=== PATIENT | female | born 1980 | race Caucasian/White ===

== ENCOUNTER 2016-10-11 16:39 | Emergency (ER) | payer MEDICAID ==
[~2016-10-11] VITALS: Ht 165.1 cm; Wt 72.6 kg
[~2016-10-11 16:39] MED LIST: APAP W/ CODEINE1 TAB PO; ESTRACE 2MG. TAB2 MG PO; ETODOLAC200 MG PO; FLEXERIL10 MG PO; HYDROCODONE-APA1 TA2 PO; KEFLEX 500MG.500 MG PO; KLOR-CON M2020 MEQ PO; MOTRIN 400MG.400 MG PO; NAPROSYN 500MG500 MG PO; NOMEDS XX; NORCO 325 MG-51 TAB PO; PERCOCET 5/3251 EACH PO; PHENERGAN 25MG.25 M1 PO; PREDNISONE 20MG20 MG PO; TORADOL10 MG PO; VALTREX1 GM PO; VIBRAMYCIN 100100 MG PO
--- NOTE | 2016-10-11 17:41 | Urgent Treatment Center Report ---
History of Present Issue Date/Time Seen by Provider 10/11/16 1741 Visit Reason Pt arrived:Walked Presenting Problem:PT C/O PAIN IN THE RIGHT EAR AND PAIN IN HER NECK. ADVISES IT FEELS LIKE A MUSCLES AND THAT SHE HAS HAD ACID REFLUX FOR 4 DAYS Location if Accident: Onset of symptoms date/time:/ or onset unknown for:MEDICAL HX UNKNOWN Have you (or family members/close friends) recently traveled outside the [place]? N If Yes, where/when: Have you had exposure to infectious disease within the past month? TB? Other? Specify: c/o pain in right side of neck w/ intermittent pain in right ear, and acid reflux type feeling for 4-5 days. Pt thinks this is muscular but doesn't know why she feels this way. Denies known injury. Initially denies treatment and denies having a PCP. Pain started 1-2 months ago, was intermittent but now constant last 3-4 days. 03/11, constant aching and occasionally swueezing. worse w/ some neck movement, especially looking to right. Denies headache or dizziness. Eventually slips and mentions a visit to the doctor last week. Finally reports she saw a PCP, Dr. Pompa with [facility] in [place], but not sure when. They remembers it was just end of last week, less than one week ago. he felt like it was muscular but no improvement with antiinflammatories, steroids, and muscle relaxers. Pt reports he ordered neck xray and it was normal. Didn't call him today or try to get back in to see him. "Thought I would see if someone else would give me anything for this". Hasn't taken steroids completely as prescribed and hasn't had antiinflammatories in 1-2 days. Source patient Exam Limitations no limitations ALLERGIES Coded Allergies: No Known Allergies (10/18/15) Home Medications Active Scripts Prednisone (Prednisone 20MG) 20 MG PO BID #10 TAB Prov: 10/03/16 History Medical History General CAD? No Angina: No OK: No Hypertension? No Hyperlipidemia? No CHF? No DVT? No PE? No COPD? No Asthma? No Anemia? No GERD? No Gastric ulcers? No GI Bleed? No Hernia? No Thyroid Problems? No Hypothyroidism? No CVA? No Seizures? No Diabetes? No Insulin Dependent: No Insulin Pump: No Home FSBS? No Renal Insuffiency? No UTI? Yes Stones? No BPH? No GB Disease: Yes Nephritic Syndrome? No Asplenia? No Hepatitis? No Sickle Cell Disease? No Arthritis? No Migraines? No Cataracts? No Glaucoma? No MRSA? No HIV? No TB? No Anxiety? Yes Depression? No Cancer? No More? Yes Additional hx: ENDOMETRIOSIS CHRONS Immunization HX DT/Tetanus > 10 Years Ago Flu Refused Pneumonia Refuses Surgical Hx Previous Surgery?Y DIAG LAP X 2 WISDOM TEETH LAP KLE TUBAL COLONOSCOPY HYSTERECTOMY Family History Family HX Diabetes Yes CAD Yes Hypertension No Hyperlipidemia No Cancer Yes TB No Social History Smoking Hx Smoker: Current Every Day Smoker Tobacco: Yes Type Cigarettes Packs/day 1 1/2 - 2 Packs Alcohol Alcohol: Yes Review of Systems All Other Systems Reviewed and Negative Constitutional denies fever, denies malaise, denies weakness ENT denies: ear discharge, nose discharge, nose congestion, throat pain, throat swelling. Respiratory denies cough Cardiovascular denies chest pain Gastrointestinal denies nausea, denies vomiting Musculoskeletal see HPI, denies back pain, muscle pain, muscle stiffness, neck pain Skin denies lesions, denies lumps, denies rash Psychiatric/Neurological denies numbness, denies tingling, denies weakness Physical Exam Vital Signs Vital Signs Date Time Temp Pulse Resp B/P Pulse O2 O2 Flow FiO2 Ox Delivery Rate 10/11 1801 98.6 87 16 168/98 98 10/11 1652 98.6 87 16 168/98 98 10/11 1645 98.6 87 16 168/98 98 General Appearance no apparent distress Ear, Nose, Throat normal ENT inspection Neck normal inspection, supple, full range of motion (inc pain rotation to right ), tender in area of right Sternocleidomastoid muscle only, no palpable abnormality, normal thyroid, no lymphadenopathy Respiratory Status No: respiratory distress (no cough). Lung Sounds anterior: lungs clear. posterior: lungs clear. bilateral: lungs clear. Cardiovascular regular rate/rhythm, no peripheral edema, no murmur Back normal inspection, no vertebral tenderness, gait normal Extremities normal range of motion, normal inspection Strength 5 Upper Ext (L), 5 Upper Ext (R) Neurologic alert, no motor/sensory deficits Skin intact, normal color, warm/dry Lymphatic no adenopathy (neck) Medical Decision Making LABS/Meds/Orders Pt receiving controlled substance in ED? No Progress [facility] Progress Notes Date 10/11/16 Comment pt's attitude changed once she slipped and reported her visit with Dr. Pompa last week. She no longer seemed as concerned, no longer asking for treatment, denied treatment options offered and was ready to leave and reported she would follow up with his office tomorrow. Nice and thankful and happy for the reassurance. Departure Departure Time of Disposition 1752 Disposition DC Home or Self Care(routine) Clinical Impression Primary Impression: Neck pain on right side Condition STABLE Referrals NO REFERRAL Dr. Pompa at [facility] in [place], call tomorrow for follow up appt Patient Instructions DI for Neck Pain Additional Instructions Try local heat tonight. 15-20 minutes 3-4 times a day Ibuprofen every 6-8 hours. You declined toradol injection in office. Call PCP in morning and schedule follow up appt. Sounds like he already started work-up. Pt agrees to follow up with his office tomorrow. Discharge Counseling Counseled pt/family regarding diagnosis, medications/RX, home care, follow up needs at [phone]
--- NOTE | 2016-10-11 17:41 | Urgent Treatment Center Report ---
History of Present Issue Date/Time Seen by Provider 10/11/16 1741 Visit Reason Pt arrived:Walked Presenting Problem:PT C/O PAIN IN THE RIGHT EAR AND PAIN IN HER NECK. ADVISES IT FEELS LIKE A MUSCLES AND THAT SHE HAS HAD ACID REFLUX FOR 4 DAYS Location if Accident: Onset of symptoms date/time:/ or onset unknown for:MEDICAL HX UNKNOWN Have you (or family members/close friends) recently traveled outside the [place]? N If Yes, where/when: Have you had exposure to infectious disease within the past month? TB? Other? Specify: c/o pain in right side of neck w/ intermittent pain in right ear, and acid reflux type feeling for 4-5 days. Pt thinks this is muscular but doesn't know why she feels this way. Denies known injury. Initially denies treatment and denies having a PCP. Pain started 1-2 months ago, was intermittent but now constant last 3-4 days. 03/11, constant aching and occasionally swueezing. worse w/ some neck movement, especially looking to right. Denies headache or dizziness. Eventually slips and mentions a visit to the doctor last week. Finally reports she saw a PCP, Dr. Pompa with [facility] in [place], but not sure when. They remembers it was just end of last week, less than one week ago. he felt like it was muscular but no improvement with antiinflammatories, steroids, and muscle relaxers. Pt reports he ordered neck xray and it was normal. Didn't call him today or try to get back in to see him. "Thought I would see if someone else would give me anything for this". Hasn't taken steroids completely as prescribed and hasn't had antiinflammatories in 1-2 days. Source patient Exam Limitations no limitations ALLERGIES Coded Allergies: No Known Allergies (10/18/15) Home Medications Active Scripts Prednisone (Prednisone 20MG) 20 MG PO BID #10 TAB Prov: 10/03/16 History Medical History General CAD? No Angina: No OR: No Hypertension? No Hyperlipidemia? No CHF? No DVT? No PE? No COPD? No Asthma? No Anemia? No GERD? No Gastric ulcers? No GI Bleed? No Hernia? No Thyroid Problems? No Hypothyroidism? No CVA? No Seizures? No Diabetes? No Insulin Dependent: No Insulin Pump: No Home FSBS? No Renal Insuffiency? No UTI? Yes Stones? No BPH? No GB Disease: Yes Nephritic Syndrome? No Asplenia? No Hepatitis? No Sickle Cell Disease? No Arthritis? No Migraines? No Cataracts? No Glaucoma? No MRSA? No HIV? No TB? No Anxiety? Yes Depression? No Cancer? No More? Yes Additional hx: ENDOMETRIOSIS CHRONS Immunization HX DT/Tetanus > 10 Years Ago Flu Refused Pneumonia Refuses Surgical Hx Previous Surgery?Y DIAG LAP X 2 WISDOM TEETH LAP KEL TUBAL COLONOSCOPY HYSTERECTOMY Family History Family HX Diabetes Yes CAD Yes Hypertension No Hyperlipidemia No Cancer Yes TB No Social History Smoking Hx Smoker: Current Every Day Smoker Tobacco: Yes Type Cigarettes Packs/day 1 1/2 - 2 Packs Alcohol Alcohol: Yes Review of Systems All Other Systems Reviewed and Negative Constitutional denies fever, denies malaise, denies weakness ENT denies: ear discharge, nose discharge, nose congestion, throat pain, throat swelling. Respiratory denies cough Cardiovascular denies chest pain Gastrointestinal denies nausea, denies vomiting Musculoskeletal see HPI, denies back pain, muscle pain, muscle stiffness, neck pain Skin denies lesions, denies lumps, denies rash Psychiatric/Neurological denies numbness, denies tingling, denies weakness Physical Exam Vital Signs Vital Signs Date Time Temp Pulse Resp B/P Pulse O2 O2 Flow FiO2 Ox Delivery Rate 10/11 1801 98.6 87 16 168/98 98 10/11 1652 98.6 87 16 168/98 98 10/11 1645 98.6 87 16 168/98 98 General Appearance no apparent distress Ear, Nose, Throat normal ENT inspection Neck normal inspection, supple, full range of motion (inc pain rotation to right ), tender in area of right Sternocleidomastoid muscle only, no palpable abnormality, normal thyroid, no lymphadenopathy Respiratory Status No: respiratory distress (no cough). Lung Sounds anterior: lungs clear. posterior: lungs clear. bilateral: lungs clear. Cardiovascular regular rate/rhythm, no peripheral edema, no murmur Back normal inspection, no vertebral tenderness, gait normal Extremities normal range of motion, normal inspection Strength 5 Upper Ext (L), 5 Upper Ext (R) Neurologic alert, no motor/sensory deficits Skin intact, normal color, warm/dry Lymphatic no adenopathy (neck) Medical Decision Making LABS/Meds/Orders Pt receiving controlled substance in ED? No Progress [facility] Progress Notes Date 10/11/16 Comment pt's attitude changed once she slipped and reported her visit with Dr. Pompa last week. She no longer seemed as concerned, no longer asking for treatment, denied treatment options offered and was ready to leave and reported she would follow up with his office tomorrow. Nice and thankful and happy for the reassurance. Departure Departure Time of Disposition 1752 Disposition DC Home or Self Care(routine) Clinical Impression Primary Impression: Neck pain on right side Condition STABLE Referrals NO REFERRAL Dr. Pompa at [facility] in [place], call tomorrow for follow up appt Patient Instructions DI for Neck Pain Additional Instructions Try local heat tonight. 15-20 minutes 3-4 times a day Ibuprofen every 6-8 hours. You declined toradol injection in office. Call PCP in morning and schedule follow up appt. Sounds like he already started work-up. Pt agrees to follow up with his office tomorrow. Discharge Counseling Counseled pt/family regarding diagnosis, medications/RX, home care, follow up needs at [phone]
[2016-10-11 18:01] VITALS: BP 168/98
== END 2016-10-11 18:02 | disposition home or self-care (01) ==
LOC: ER 16:39 → UTC 16:48
DX: M54.2 Cervicalgia (principal)

== ENCOUNTER 2017-04-06 15:09 | Emergency (ER) | payer MEDICAID ==
[~2017-04-06] VITALS: Ht 165.1 cm; Wt 81.6 kg
[2017-04-06 15:31] LABS: HEMOGLOBIN 15.4 g/dL (12.2-16.2); LYMPH # 3.1 K/mm3 (0.7-4.5)
[2017-04-06 16:01] LABS: BUN 4 mg/dL (7-18); GFR (ESTIMATED) 82 ML/MIN (59-)
--- NOTE | 2017-04-06 16:32 | Emergency Room Report ---
History of Present Illness Time Seen by MD Neri Comment The patient arrives by ambulance. She has several different complaints. She complains of a painful knot on her anterior chest that is been there for a couple of days. It is very tender to touch. She says also the RIGHT side of her neck hurts and she has pain that goes down into her RIGHT arm and tingling of her RIGHT fingers. Her neck pain increases worse with movement. She also says that she thinks her RIGHT shoulder when out recently and she wonders whether it is still partially out. She can move it through a full range of motion. She says "it will go out again some time". She denies current cough although she said she recently saw her doctor couple of weeks ago for a cough. No fever. No shortness of breath. No leg pain or swelling. No recent travel, surgeries, or hospitalizations. No hormonal treatment. He says that she had an MRI of her neck about 6 months ago at another hospital that showed disc problems in her neck. She says she was having numbness in her hands and legs at that time and her doctor also wants to do an MRI of her back. ALLERGIES Coded Allergies: No Known Allergies (04/06/17) History Medical History General CAD? No Angina: No HI: No Hypertension? No Hyperlipidemia? No CHF? No DVT? No PE? No COPD? No Asthma? No Anemia? No GERD? No Gastric ulcers? No GI Bleed? No Hernia? No Thyroid Problems? No Hypothyroidism? No CVA? No Seizures? No Diabetes? No Renal Insuffiency? No End Stage Renal Disease? No UTI? No Stones? No BPH? No GB Disease: No Nephritic Syndrome? No Asplenia? No Hepatitis? No Sickle Cell Disease? No Arthritis? No Migraines? No Cataracts? No Glaucoma? No MRSA? No HIV? No TB? No Anxiety? Yes Depression? No Cancer? 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 Social History Smoking Hx Smoker: Current Every Day Smoker Tobacco: Yes Type Cigarettes Alcohol Alcohol: No Review of Systems All Other Systems Reviewed and Negative Constitutional denies fever Respiratory denies cough, denies shortness of breath Cardiovascular see HPI, chest pain, denies edema Musculoskeletal see HPI, joint pain, neck pain Physical Exam Vital Signs Vital Signs Date Time Temp Pulse Resp B/P Pulse O2 O2 Flow FiO2 Ox Delivery Rate 04/06 1646 90 18 127/76 98 04/06 1511 98.6 90 18 133/80 98 General Appearance Extremely anxious Eye Exam - bilateral eye normal exam, bilateral eye PERRL, bilateral eye EOMI Ear, Nose, Throat hearing grossly normal, normal ENT inspection Neck tender RIGHT lateral neck. No mass., positive Spurling Respiratory Status Yes: trachea midline, chest symmetrical, tender on palpation. No: respiratory distress. Lung Sounds bilateral: normal breath sounds, lungs clear. Cardiovascular normal exam, regular rate/rhythm, no peripheral edema, no gallop, no JVD, no murmur, no rub, normal peripheral pulses Peripheral Pulses Pulses normal Yes Gastrointestinal normal bowel sounds, normal exam, non tender, soft, no organomegaly Extremities non-tender, normal range of motion, normal inspection, for range of motion of RIGHT shoulder. No signs of subluxation or dislocation. 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 Yes Juan was queried for this patient? Yes Comment [id number] rxs. last pain med 16 tramadol on 03/13/17. Results/Orders Laboratory Tests 04/06/17 1520: Sodium 140, Potassium 3.4 L, Chloride 103, Carbon Dioxide 24, BUN 4 L, Creatinine 0.8, Estimated Creat Clear 128, Estimated GFR (MDRD) 82, Glucose 93, Calcium 9.6, Total Bilirubin 0.5, AST 12 L, ALT 27, Alkaline Phosphatase 113, Creatine Kinase 161, CK-MB (CK-2) Rel Index 0.3, CK and CKMB Interp < 0.5, Troponin I < 0.02, Total Protein 8.5 H, Albumin 4.0, Globulin 4.5 H, Albumin/ Globulin Ratio 0.9 L, WBC 8.5, RBC 5.23, Hgb 15.4, Hct 47.4 H, MCV 90.7, RDW 13.0, Plt Count 221, MPV 8.4, Gran % 52.6, Gran # 4.5, Lymphocytes % 36.0, Monocytes % 8.2, Eosinophils % 2.4, Basophils % 0.7, Lymphocytes # 3.1, Monocytes # 0.7, Eosinophils # 0.2, Basophils # 0.1, PUBS MCHC 32.4, MCH 29.4 Current Medication Orders Sig/Max Start time Last Medication Dose Route Stop Time Status Admin Ketorolac 0 .STK-MED ONE 04/06 1638 DC Tromethamine .ROUTE Ketorolac 30 MG ONCE ONE 04/06 1630 DC Tromethamine IV 04/06 163 Orders Procedure Date/time Status 12 LEAD EKG-LULU (INITIAL) 04/06 1520 Active ELECTROCARDIOGRAM REQUEST 04/06 1518 Active CHEST(2 VIEWS-NOT PORTABLE) 04/06 1518 Active CBC WITH AUTO DIFF 04/06 1518 Complete CARDIAC ENZYMES 04/06 1518 Complete CHEM 12 PROFILE 04/06 1518 Complete Departure Departure Disposition DC Home or Self Care(routine) Clinical Impression Primary Impression: Cervical radiculopathy Secondary Impressions: Costochondritis Condition STABLE Patient Instructions DI for Cervical Radiculopathy, DI for Costochondritis Additional Instructions Additional instructions for NECK PAIN: See your physician as soon as possible for further evaluation. Return immediately if neck pain becomes intolerable, or if fever, numbness or weakness of your arms or legs, loss of control of your bowels or bladder. Additional instructions for CHEST PAIN: See your physician as soon as possible for further evaluation. Return immediately if worsening chest pain, vomiting, shortness of breath, fever, coughing of blood. Additional instructions for CONTROLLED SUBSTANCES: You have been prescribed a medication that is a controlled substance. Controlled substances include pain medications known as opiates and sedative nerve medications known as benzodiazepines. Some common opiates include: Codeine (such as Tylenol #3) Hydrocodone (Vicodin, Lortab, Lorcet, [place]) Oxycodone (Percocet, Percodan, Oxycodone, Oxy IR) Some common benzodiazepines include: Diazepam (Valium) Lorazepam (Ativan) Alprazolam (Xanax) Clonazepam (Klonopin) Oxazepam (Serax) All of these controlled substances are highly addictive and frequently abused. Misuse can and frequently does lead to addiction as well as overdose and . Short term supplies, 3 days or less, are prescribed because of the highly addictive nature of the medication. Any of the controlled substance medication NOT taken should be disposed of properly and NOT SAVED. The recommended method of disposing of unused medications is: Place the medicines in a sealable plastic bag. If the medicine is a solid, crush it or add water to dissolve it. Add something undesirable (cat litter, coffee grounds, etc.) Dispose of sealed bag in household trash Do not flush or pour unused medicines down a sink or drain. Also, because of the addictive nature and frequent abuse, these medications are sometimes stolen. These medications should be kept in a safe place where they cannot be stolen. Do not keep them in your car or purse. Lost or stolen prescriptions for controlled substances WILL NOT BE REFILLED in this emergency department, regardless of whether a police report was filed. Prescriptions Current Visit Scripts TRAMADOL HCL (Tramadol) 50 MG PO Q6HP PRN pain #10 TAB Prednisone (Prednisone 10MG) 10 MG PO DAILY #27 TAB 6 po on days 1-2, then decrease dose by 1 pill per day until gone ED Critical Care Critical Care No at 1915
[2017-04-06 16:46] VITALS: BP 127/76
--- NOTE | 2017-04-07 09:24 | RADIOLOGY REPORT PS360 ---
CHEST(2 VIEWS-NOT PORTABLE) INDICATION: Chest pain COMPARISON: None FINDINGS: The lung mar are well expanded and appear clear of infiltrate. The cardiomediastinal silhouette and vascularity are normal. The costophrenic angles are clear. The bony thorax is normal. IMPRESSION: Normal chest.
--- OUTSIDE RECORDS SUMMARY | 2017-04-13 07:36 | External Medical Summary Rpt | CCD ---
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 TA BL ET OX 00 07 07 00 12 3 DE 20 CANO Ac YC 40 -1 -3 .0 AN 11 LL ti OD 60 5- 0- 00 S 47 ve ON 51 [address] E- 20 09 09 AR EP AC 5 MA HE ET CY N AM K IN OP HE N 5- 32 5 IB 53 07 07 00 30 10 DE 63 CANO Ac UP 74 -1 -3 .0 AN 82 LL ti RO 60 5- 0- 00 S 10 ve FE 46 [address] N 60 09 09 AR EP 80 5 MA HE 0 CY N MG K TA BL ET 00 05 05 00 10 3 KR 44 ANGELIQUE Ac 40 -0 -2 .0 OG 27 HM ti 60 5- 1- 00 ER 24 E ve 35 20 20 9 CA 70 09 09 PH RO 5 M LI #1 NE 44 J 10 CE 42 05 05 00 14 7 KR 67 ANGELIQUE Ac PH 04 -0 -2 .0 OG 84 HM ti AL 30 5- 1- 00 ER 38 E ve EX 14 20 20 0 CA IN 10 09 09 PH RO 5 M LI 50 #1 NE 0 44 J MG 10 CA PS UL E 59 04 04 00 30 30 MA 60 SR Ac 63 -0 -2 .0 YS 09 IV ti 00 1- 3- 00 18 ve 41 20 20 LL 6 TA 69 09 09 E VA 0 OB /G GE YN ET A FA AZ LY HE AL TH AM 00 02 02 00 30 10 RE 66 BR Ac OX 09 -0 -1 .0 YN 17 IN ti -C 32 5- 2- 00 OL 75 DL ve LA 27 20 20 DS EY V 43 09 09 M 50 4 PH L 0- AR 12 MA 5 CY MG TA BL ET CE 68 12 01 00 40 10 RE 66 BR Ac PH 18 -2 -1 .0 YN 02 IN ti AL 00 7- 5- 00 OL 40 DL ve EX 12 20 20 DS EY IN 20 08 09 M 2 PH L 50 AR 0 MA MG CY CA PS UL E DI 00 12 12 00 30 30 DE 40 NE Ac AZ 17 -1 -1 .0 AN 57 US ti EP 23 0- 8- 00 S 81 ve AM 92 [address] 77 08 08 AR EV 10 0 MA EN CY E MG TA BL ET 63 11 12 00 40 10 MA 60 ME Ac 30 -2 -0 .0 YS 04 ES ti 40 1- 4- 00 89 E ve 65 [address] 70 08 08 E EP 5 OB HE /G N YN P FA AZ LY HE AL TH DI 00 11 11 00 30 30 MA 40 NE Ac AZ 37 -1 -2 .0 YS 01 US ti EP 80 0- 0- 00 48 ve AM 47 [address] 70 08 08 E EV 10 1 OB EN /G E MG YN TA FA BL AZ ET LY HE AL TH 00 10 10 00 12 2 WA 27 No Ac 59 -0 -2 .0 LG 30 t ti 10 5- 3- 00 RE 37 Av ve 34 20 20 EN 0 ai 90 08 08 # la 5 bl 07 e 34 6 DI 00 07 10 02 30 30 DE 40 No Ac AZ 17 -1 -2 .0 AN 57 t ti EP 23 5- 3- 00 S 04 Av ve AM 92 20 20 PH 8 ai 77 08 08 AR la 10 0 MA bl CY e MG TA BL ET DI 00 07 09 01 30 30 DE 40 No Ac AZ 17 -1 -2 .0 AN 57 t ti EP 23 5- 6- 00 S 04 Av ve AM 92 20 20 PH 8 ai 77 08 08 AR la 10 0 MA bl CY e MG TA BL ET DI 00 07 08 00 30 30 DE 40 No Ac AZ 17 -1 -2 .0 AN 57 t ti EP 23 5- 8- 00 S 04 Av ve AM 92 20 20 PH 8 ai 77 08 08 AR la 10 0 MA bl CY e MG TA BL ET DI 00 07 08 00 30 30 RI 61 No Ac AZ 17 -1 -0 .0 TE 41 t ti EP 23 5- 1- 00 82 Av ve AM 92 20 20 AI ai 77 08 08 D la 10 0 PH bl AR e MG M #3 TA 92 BL 0 ET 60 07 07 00 20 10 DE 63 No Ac 50 -0 -1 .0 AN 68 t ti 51 9- 7- 00 S 10 Av ve 30 20 20 PH 9 ai 90 08 08 AR la 1 MA bl CY e 60 06 06 00 14 7 DE 63 No Ac 50 -0 -1 .0 AN 66 t ti 51 5- 2- 00 S 85 Av ve 30 20 20 PH 5 ai 90 08 08 AR la 1 MA bl CY e DI 00 06 06 00 30 30 DE 40 No Ac AZ 17 -0 -1 .0 AN 56 t ti EP 23 5- 2- 00 S 58 Av ve AM 92 20 20 PH 9 ai 77 08 08 AR la 10 0 MA bl CY e MG TA BL ET DI 00 03 05 02 30 30 RE 64 No Ac AZ 59 -1 -2 .0 YN 72 t ti EP 15 0- 2- 00 OL 15 Av ve AM 62 20 20 DS ai 00 08 08 la 10 5 PH bl AR e MG MA CY TA BL ET DI 00 03 04 01 30 30 RE 64 No Ac AZ 59 -1 -2 .0 YN 72 t ti EP 15 0- 4- 00 OL 15 Av ve AM 62 20 20 DS ai 00 08 08 la 10 5 PH bl AR e MG MA CY TA BL ET PE 54 05 04 03 24 30 RE 63 No Ac NT 09 -0 -1 0. YN 17 t ti 20 4- 7- 00 OL 21 Av ve A 19 20 20 0 DS ai 50 11 07 08 la 0 2 PH bl MG AR e MA CA CY PS UL E DI 00 03 04 00 30 30 RE 64 No Ac AZ 59 -1 -1 .0 YN 72 t ti EP 15 0- 7- 00 OL 15 Av ve AM 62 20 20 DS ai 00 08 08 la 10 5 PH bl AR e MG MA CY TA BL ET DI 00 09 03 04 30 30 RE 63 No Ac AZ 59 -1 -2 .0 YN 83 t ti EP 15 0- 6- 00 OL 21 Av ve AM 62 20 20 DS ai 00 07 08 la 10 5 PH bl AR e MG MA CY TA BL ET CAVAZOS 53 01 03 01 30 15 RE 64 No Ac LF 48 -0 -2 .0 YN 36 t ti AM 90 2- 6- 00 OL 12 Av ve ET 14 20 20 DS ai HO 60 08 08 la XA 5 PH bl ZO AR e LE MA -T CY MP DS TA BL ET DI 00 09 03 03 30 30 RE 63 No Ac AZ 59 -1 -2 .0 YN 83 t ti EP 15 0- 4- 00 OL 21 Av ve AM 62 20 20 DS ai 00 07 08 la 10 5 PH bl AR e MG MA CY TA BL ET CAVAZOS 53 01 03 00 30 15 RE 64 No Ac LF 48 -0 -2 .0 YN 36 t ti AM 90 2- 4- 00 OL 12 Av ve ET 14 20 20 DS ai HO 60 08 08 la XA 5 PH bl ZO AR e LE MA -T CY MP DS TA BL ET 63 01 03 00 20 10 RE 64 No Ac 82 -0 -2 .0 YN 36 t ti 40 2- 4- 00 OL 13 Av ve 00 20 20 DS ai 82 08 08 la 0 PH bl AR e MA CY Procedures Procedure DOS Code Location Performer Comment DRUG TEST 79535 ST PRSMV 7 [facility] INSTRDET CHEMISTRY HEALTHCAR HEALTHCAR E EDGE E EDGE ANALYZERS [place] [address]3814 RADIOLOGY ROEBKER SPINAL 7 CANAL ASSOCIATE CERVICAL S OF [facility] W/O CONTRAST MATRL GLUC BLD 21483 RAHEL MCGINNIS GLUC MNTR 7 [facility] DEV INC INC CLEARED FDA SPEC HOME USE DRUG TEST 51171 RAHEL MCGINNIS PRSMV 7 [facility] QUAL DIR INC INC OPTICAL OBS PER DAY RADEX 64456 RADIOLOGY BOISE SPINE 7 INC CERVICAL 2 OR 3 VIEWS RADEX 87588 JOANNA BENITEZ SHOULDER 7 MEDICAL COMPLETE IMAGING MINIMUM 2 ASS VIEWS RADEX 25042 JOANNA BENITEZ HUMERUS 7 MEDICAL MINIMUM 2 IMAGING VIEWS ASS RADEX 02012 JOANNA BENITEZ FOREARM 2 7 MEDICAL VIEWS IMAGING ASS RADEX 40579 RAHEL MCGINNIS WRIST 7 [facility] COMPLETE INC INC MINIMUM 3 VIEWS SHOULDER L3650 ADVANCED ADVANCED ORTHOSIS 7 TECHNOLOG TECHNOLOG FIG 8 IES INC IES INC ABDUCT RESTRAINE R PREFAB RADEX 48788 JOANNA BENITEZ HAND 7 MEDICAL MINIMUM 3 IMAGING VIEWS ASS CREATINE 04343 RAHEL MCGINNIS KINASE MB 7 [facility] FRACTION INC INC ONLY ECG 61526 RAHEL MCGINNIS ROUTINE 7 [facility] ECG INC INC W/LEAST 12 LDS TRCG ONLY W/O I&R CREATINE 58795 RAHEL MCGINNIS KINASE 7 [facility] HOSP TOTAL INC INC RADIOLOGI 56822 RAHEL MCGINNIS C EXAM 7 [facility] CHEST 2 INC INC VIEWS FRONTAL&[place] [address] RAHEL MCGINNIS TROPONIN 7 [facility] HOSP QUANTITAT INC INC JAYDE ECG 37613 RAHEL MCKEONSON ROUTINE 7 [facility] W/LEAST P 12 LDS I&R ONLY RADEX 24235 RADIOLOGY JANNETTE SHOULDER 7 COMPLETE ASSOCIATE MINIMUM 2 S OF NOTH VIEWS RADEX 01759 RAHEL MCGINNIS FOREARM 2 6 [facility] VIEWS INC INC THERAPEUT 04736 RAHEL MCGINNIS IC 6 [facility] HOSP PROPHYLAC INC INC TIC/DX INJECTION SUBQ/IM RADEX 62284 RAHEL MCGINNIS ELBOW 6 [facility] COMPLETE INC INC MINIMUM 3 VIEWS SHOULDER L3650 ADVANCED ADVANCED ORTHOSIS 6 TECHNOLOG TECHNOLOG FIG 8 IES INC IES INC ABDUCT RESTRAINE R PREFAB RADEX 37300 COLD COLD SHOULDER 6 [place] [facility] [place]IM[place] [address] [place] [address] RADIOLOGY SHERIF SCO ABDOMEN & 6 PELVIS ASSOCIATE W/CONTRAS S OF NOTH T MATERIAL OPHTH 38334 [place] [facility]ENE [facility] 6 XM&EVAL COMPRE NEW PT 1/> VST BASIC 06550 LAB DESIRE LAB DESIRE METABOLIC 6 JAYY JAYY PANEL [place] [address] [place] T[facility]RES ALL HEAD/BRAI 6 MEDICAL N W/O IMAGING CONTRAST ASS MATERIAL CULTURE 08266 RAHEL MCGINNIS BACTERIAL 5 [facility] INC INC QUANTTATI VE COLONY COUNT URINE BLOOD 88917 RAHEL MCGINNIS COUNT 5 [facility] COMPLETE INC INC AUTO&AUTO DIFRNTL [facility] G0378 RAHEL MCGINNIS OBSERVATI 5 [facility] ON INC INC SERVICE PER HOUR INJECTION J1335 RAHEL MCGINNIS 5 [facility]OS[facility] ERTAPENEM INC INC SODIUM 500 MG COLLECTIO 85431 RAHEL De Souza VENOUS 5 [facility] BLOOD INC INC VENIPUNCT [facility]RE [facility] G0378 RAHEL MCGINNIS OBSERVATI 5 [facility] ON [place] [address] [facility], TRENT SURG [address] [place] [address] PATHOLOGY GROSS&PALOMA ROSCOPIC EXAM INJECTION J2405 RAHEL MCGINNIS 5 [facility] ONDANSETR INC INC ON HCL PER 1 MG ANESTHESI 67682 [facility] VAGINAL 5 ANESTH SHE OF THE HYSTERECT BLUE LARA INCL BIOPSY LAPS 78720 RAHEL MCGINNIS W/VAG 5 [facility] HYSTERECT INC INC 250 GM/&RMVL TUBE&/OVA MERLY INJECTION J2710 RAHEL MCGINNIS 5 [facility] NEOSTIGMI INC INC NE METHYLSUL FATE UP TO 0.5 MG URNLS DIP 42426 RAHEL MCGINNIS 5 [facility] STICK/TAB INC INC LET REAGENT AUTO MICROSCOP Y URNLS DIP 36999 RAHEL MCGINNIS 5 [facility] STICK/TAB INC INC LET REAGENT AUTO MICROSCOP Y RADEX 20759 [place] TORRES ALL WRIST 5 MEDICAL COMPLETE IMAGING MINIMUM 3 ASS VIEWS RADEX 96564 [place] ALL FOREARM 2 5 MEDICAL VIEWS IMAGING ASS GONADOTRO 75169 RAHEL RAHEL PIN 5 [facility] CHORIONIC INC INC QUALITATI VE BLOOD 71298 RAHEL RAHEL COUNT 5 [facility] COMPLETE INC INC AUTO&AUTO DIFRNTL WBC APPLICATI 61891 DANDRE PALAFOX JR ON SHORT 5 PHYSICIAN JAM ARM S, PLLC SPLINT FOREARM-H AND STATIC WRIST L3908 ADVANCED ADVANCED HAND 5 TECHNOLOG TECHNOLOG ORTHOSIS IES INC IES INC EXT CONTROL COCK-UP PREFAB COLLECTIO 56793 RAHEL MCGINNIS N VENOUS 5 [facility] BLOOD INC INC VENIPUNCT URE COMPREHEN 55111 RAHEL MCGINNIS SIVE 5 [facility] [place] [address] [facility], PICKLESIM SURG 5 [facility] HARISH MURRAY ALAYNA PATHOLOGY GROSS&[place] [address] RAHEL MCGINNSI TRANSVAGI 5 [facility] NAL INC INC CYTP C/V 54102 [facility], PICKLESIM AUTO THIN 5 [facility] ER LYR PREPJ SCR MNL RESCR PHYS IADNA 75514 RAHEL MCGINNIS NEISSERIA 5 [facility] INC INC GONORRHOE AE AMPLIFIED PROBE TQ IADNA 43943 RAHEL MCGINNIS CHLAMYDIA 5 [facility] INC INC TRACHOMAT IS AMPLIFIED PROBE TQ CULTURE 84542 RAHEL MCGINNIS BACTERIAL 5 [facility] INC [place] [address] [facility] ABDOMEN & 5 MEDICAL SVETLANA PELVIS IMAGING W/O ASS CONTRAST MATERIAL RADEX 93861 MEADOWVIE MEADOWVIE SHOULDER 3 W W ARTHROGRA REGIONAL REGIONAL PHY RS&I MEDICAL MEDICAL MRI ANY 16886 DARLENE COLON JT UPPER 3 [facility] EXTREMITY W/O CONTRAST MATRL INJECTION 09908 DARLENE COLON SHOULDER 3 [facility] ARTHROGRA PHY/ CT/MRI [place] 8[address]77 MEADOWVIE MEADOWVIE JT UPPER 3 W W EXTREMITY REGIONAL REGIONAL MEDICAL MEDICAL W/CONTRAS T MATRL RADEX 71902 DARLENE COLON SHOULDER 3 [facility] COMPLETE MINIMUM 2 VIEWS CUL BACT 62126 QUEST QUEST XCPT 3 DIAGNOSTI DIAGNOSTI URINE CS CS BLOOD/STO OL AEROBIC ISOL CULTURE 84386 QUEST QUEST TYPING 3 DIAGNOSTI DIAGNOSTI IMMUNOLOG CS CS IC OTH/THN IMMUNOFLU ORES DRG ABSC 55912 HAAKE BRA HAAKE BRA PARTNERSHIP DEVELOPMENT MANAGER HMTMA 3 VESTIBULE MOUTH SMPL INCISION 36335 MEADOWVIE MEADOWVIE & 3 W W DRAINAGE REGIONAL REGIONAL ABSCESS MEDICAL MEDICAL SIMPLE/SI NGLE INJECTION J3301 RAMOS PEPE RAMOS PEPE 3 TRIAMCINO LONE ACETONIDE NOS 10 MG ARTHROCEN 40055 RAMOS PEPE RAMOS PEPE TESIS 3 ASPIR&/IN J MAJOR JT/BURSA W/O US RADEX 50379 BARON LAWSON MAHNAZ SHOULDER 3 DAUGHTERS COMPLETE MEDICAL MINIMUM 2 SPEC VIEWS RADEX 39581 RADIOLOGY GISEL SHOULDER 3 III JOCE COMPLETE ASSOCIATE MINIMUM 2 S OF NOTH VIEWS RADEX 98818 RADIOLOGY AMERICO HUMERUS 3 TUS MINIMUM 2 ASSOCIATE VIEWS S OF NOTH RADEX 57705 RADIOLOGY [place] WRIST 3 TUS COMPLETE ASSOCIATE MINIMUM 3 S OF NOTH VIEWS RADEX 05189 RADIOLOGY [place] ELBOW 3 TUS COMPLETE ASSOCIATE MINIMUM 3 S OF NOTH VIEWS INJECTION J2405 RAHEL MCGINNIS 2 [facility] ONDANSETR INC INC ON HCL PER 1 MG ANES IPER [address] [facility] LWR ABD 2 ANESTH W/LAPS OF THE TUBAL BLUE L[place]ATION/ [place] [address] RAEHL RAHEL INFUSION 2 [facility] THERAPY INC INC PROPHYLAX IS/DX EA HOUR LAPAROSCO 64815 [facility] P[facility] W/PLMT 2 [facility] OCCLUSION JAMESON JAMESON DEVICE OVIDUCTS BLOOD 09763 RAHEL MCGINNIS COUNT 2 [facility] COMPLETE INC INC AUTO&AUTO DIFRNTL WBC BASIC 24357 RAHEL MCGINNIS METABOLIC 2 MEM HOS[facility] PANEL INC INC CALCIUM TOTAL URINE 46212 RAHEL MCGINNIS 2 [facility] TEST INC INC VISUAL COLOR CMPRSN METHS CYTP C/V 08138 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 [place] [address] AMERIPATH KIERRA SURG 1 [place] INC JAM PATHOLOGY GROSS&PALOMA ROSCOPIC EXAM LEVEL III 86169 MEAWHELDER MEAWVIE SURG 1 W W PATHOLOGY [facility] GROSS&PALOMA ROSCOPIC EXAM LAPS SURG 56936 MEACOLE MANSHIP 1 W GENERAL LAW CHOLECYST SURGERY ECTOMY W/CHOLANG IOGRAPHY URINE 49527 MEAWVIE MEADOWVIE 1 W W TEST [facility] VISUAL MEDICAL MEDICAL COLOR CMPRSN METHS CHOLANGIO 10301 [facility] GRAPHY&/P 1 EIDER WESLY ANCREATOG RADIOLOGY MORALES ASSOCIAT NTRAOP RS&I ECG 24445 KAROL SERRATO ROUTINE 1 EMERGENCY JESE ECG SERVICES W/LEAST 12 LDS I&R ONLY RADIOLOGI 05544 [facility] C EXAM 1 KENYA CHEST 2 RADIOLOGY VIEWS ASSOCIAT FRONTAL&[place] [address] [facility] ABDOMINAL 1 REAL DIAGNOSTI DIAGNOSTI TIME C CENTER, C CENTER, W/[place] [address] [facility] ABDOMEN & 1 KENYA PELVIS RADIOLOGY W/O ASSOCIAT CONTRST 1/> BODY RE 3D 16831 [facility] RENDERING 1 DIAGNOSTI DIAGNOSTI W/INTERP& C CENTER, C CENTER, [place] [address] [facility] ABDOMEN 1 W/O & DIAGNOSTI DIAGNOSTI W/CONTRAS C CENTER, C CENTER, T MATERIAL CT PELVIS 23859 [facility] W/O & 1 W/CONTRAS DIAGNOSTI DIAGNOSTI T C MUSSELSHELL, C CENTER, MATERIAL CUL BACT 41301 [facility] ANAEROBIC 9 [facility] ADDL METHS DEFINITIV E EA ISOL SUSCEPTIB 10122 [facility] LTY STDY 9 [facility] ANTIMICRB IAL MICRO/AGA R DILUTJ SMR PRIM 87734 [facility] SRC 9 [facility] GRAM/GIEM SA STAIN BCT FUNGI/TIA L [place] [address] JON ALICEA 9 PRIMARY MAR[facility] P S [facility] ABSCESS CENTERINC CUL BACT 11817 [facility] XCPT 9 [facility] URINE BLOOD/STO OL AEROBIC ISOL CULTURE 87429 [facility] BACTERIAL 9 [facility] ANY SOURCE ANAEROBIC ISO&ID CUL BACT 16021 [facility] AEROBIC 9 [facility] ADDL METHS DEFINITIV E EA ISOL [place] PREG 44859 [facility], UTERUS 9 [facility] Gu[facility]en REAL TIME I F/U TRNSABDL ASSOC PER [employer] NEURAXIAL [address] ST LA[facility], LABOR 9 TAHIR IVEY F ANALG/ANE MED CTR S PLND VAGINAL DELIVERY OTHER 7359 [facility] MANUALLY [address] [place] [address] ASSISTED [facility] DELIVERY OTHER 7534 [facility] [address] [place] [address] MONITORIN [facility] G 68756 [facility], BIOPHYSIC 9 RAFAEL Guillen AL I PROFILE W/O ASSOC [employer] S TESTING OBSERVATI 17253 [facility], ON/INPATI 9 TAHIR MOSES [facility] CARE [address] DIAZ, NONSTRESS 9 [facility] MOS[facility] TEST MED CTR AMNIOCENT 70163 EMILY, ESIS 9 [facility] DIAGNOSIC MED CTR IADNA 68936 [facility] CHLAMYDIA 9 [facility] TRACHOMAT MEDICALCE MEDICALCE IS NTER NTER AMPLIFIED PROBE TQ IADNA 83131 [facility] STREPTOCO 9 [facility] CCUS GROUP B MEDICALCE MEDICALCE AMPLIFIED NTER NTER PROBE TQ IADNA 91081 [facility] NEISSERIA 9 [facility] GONORRHOE MEDICALCE MEDICALCE AE NTER NTER [place] T[place] P[place] [address] [facility] UTERUS [address] [place] [address] REAL TIME [facility] F/U TRNSABDL PER FETUS CUL BACT 86753 [facility] XCPT 9 [facility] URINE BLOOD/STO MEDICALCE MEDICALCE OL NTER [place]OBIC ISOL [place] [address] BOHME, BARTHOLIN 9 [facility] J ABSCESS GLUCOSE 36477 [facility] POST 9 [facility] GLUCOSE DOSE MEDICALCE MEDICALCE NTER NTER BLOOD 36443 [facility] COUNT 9 [facility] COMPLETE AUTO&AUTO MEDICALCE MEDICALCE DIFRNTL NTER NTER WBC COLLECTIO 07871 [facility] N VENOUS 9 [facility] BLOOD VENIPUNCT MEDICALCE MEDICALCE URE NTER NTER SMR PRIM 75768 [facility] SRC 9 [facility] GRAM/GIEM SA STAIN MEDICALCE MEDICALCE BCT NTER NTER FUNGI/TIA L CULTURE 29024 [facility] TYPING 9 [facility] NUCLEIC ACID MEDICALCE MEDICALCE PROBE DIR NTER NTER EA ORGANSM OPHTH 62660 [facility] 9 VISION EVA A XM&EVAL COMPRHNSV ESTAB PT 1/> US PREG 02-25-[address] [facility] UTERUS 9 [facility] W/DETAIL [facility] 1ST GESTATION IADNA 29524 [facility] CHLAMYDIA 8 [facility] TRACHOMAT IS AMPLIFIED PROBE TQ CYTP C/V 70681 [facility] AUTO THIN 8 [facility] LYR PREPJ SCR MNL RESCR PHYS IADNA 84133 [facility] NEISSERIA 8 [facility] GONORRHOE AE AMPLIFIED PROBE TQ MOLECULAR 05136 [facility]IS 8 [facility] DIAGNOSTI [facility] INTERPRET ATION & REPORT MUTATION 60856 [facility] ID 8 [facility] ENZYMATIC [facility] LIG/PRIME R XTN 1 SGM EA MOLECULAR 58151 [facility] DX AMP 8 RUY RED[facility] EA ADDL SEQ MOLEC 42818 [facility] SEP&ID HI 8 [facility] RESOLU TQ [facility] NUCLEIC ACID PREP MOLECULAR 23288 [facility] DX AMP 8 RUY REDMON[facility] 1ST 2 SEQ MOLEC 80936 [facility] ISOL/XTRJ 8 RUY REDMON[facility] HP NUCLEIC [facility] ACID EA TYPE CUL BACT 68704 [facility] XCPT 8 [employer] [facility] URINE BLOOD/[place] ISOL [place] [address] JON ALICEA 8 PRIMARY MARIO P S [facility] ABSCESS CENTERINC CUL BACT 99531 [facility] ANAEROBIC 8 [employer] INC ADDL METHS DEFINITIV E EA ISOL CULTURE 02896 [facility] BACTERIAL 8 [facility] ANY SOURCE ANAEROBIC ISO&ID SMR PRIM 30973 [facility] SRC 8 [facility] GRAM/GIEM SA STAIN BCT FUNGI/TIA L AMB A0422 HERNAN BECERRA OXYGEN&O2 8 CO FIRE ZAPR FIRE SUPPLIES PROTECTIO PROTECTIO LIFE N DIST #1 N DIST #1 SUSTAININ G SITUATION GROUND A0425 HERNAN BECERRA MILEAGE 8 CO FIRE CO FIRE PER PROTECTIO PROTECTIO STATUTE N DIST #1 N DIST #1 MILE AMBULANCE A0429 HERNAN BECERRA SERVICE 8 CO FIRE CO FIRE BLS PROTECTIO PROTECTIO EMERGENCY N DIST #1 N DIST #1 TRANSPORT SMPL 40003 EMERGENCY MICAH, REPAIR 8 CARE SHERI D SCALP/NEC PHYS K/AX/[facility]/TRUNK [place] 2.6-7.5CM RADEX HIP 31105 RADIOLOGY LAIB, 8 HENNY H [facility] S PSC COMPLETE MINIMUM 2 VIEWS URNLS DIP 35558 MEADOWVIE MEADOWVIE 8 W W STICK/TAB [facility] CENTER AUTO MICROSCOP Y CULTURE 78761 MEADOWVIE MEADOWVIE BACTERIAL 8 W W [facility] QUANTTATI [facility] [place] [place] [id number] [facility] NON-IMMUN 8 [place] [facility] [place] [facility] OLOGIC OTH/THN CYTOPATHI C Encounters Encounter Start End Date Code Location Performer Type Date EMERGENCY 11772 [facility] 7 7 EMERGENCY DEPARTMEN T VISIT PHYSICIAN HIGH/URGE S NT SEVERITY OFFICE 39543 [facility] FAMILY T VISIT [facility] [address] - 7 7 [place] OUTPATIEN T [facility] OFFICE 73288 [facility] CON[facility] 7 7 [place] ION NEW/ESTAB PHYSICIAN PATIENT S [address] - 7 7 [place] OUTPATIEN T [facility] - 7 7 [facility] OUTPATIEN INC T EMERGENCY 06757 [facility] 7 7 [facility] DEPARTMEN INC T VISIT LOW/MODER SEVERITY [facility]OSPITAL [facility] - 7 7 [facility] OUTPATIEN INC T OFFICE 31152 [facility] WORKMANPATIEN 7 7 [facility] T VISIT 5 INC MINUTES EMERGENCY 86901 [facility] 7 7 [facility] DEPARTMEN INC T VISIT LOW/MODER SEVERITY HOSPITAL [facility] - 7 7 [facility] OUTPATIEN INC T EMERGENCY 13625 DANDRE CHOE DEPT 7 7 PHYSICIAN VISIT S, PLLC HIGH SEVERITY& THREAT FUNCJ EMERGENCY 74396 [facility] 7 7 [facility] DEPARTMEN INC T VISIT MODERATE SEVERITY HOSPITAL [facility] - 7 7 [facility] OUTPATIEN INC T EMERGENCY 82318 AMBAR ALVES 7 7 EMERGENCY DEPARTMEN T VISIT PHYSICIAN HIGH/URGE S NT SEVERITY HOSPITAL [facility] - 6 6 [facility] OUTPATIEN INC T EMERGENCY 72547 DANDRE CHOE 6 6 PHYSICIAN DEPARTMEN S, PLLC T VISIT HIGH/URGE NT SEVERITY EMERGENCY 05573 [facility] 6 6 [facility] DEPARTMEN INC T VISIT LOW/MODER SEVERITY OFFICE 76606 LULU HERRERAE OUTPATIEN 6 6 FAMILY T VISIT HEALTH 15 CTR MINUTES OFFICE 84761 [facility] OUTPATIEN 6 6 [place] [facility] URGENT MINUT[facility] CARE EMERGENCY 35644 AMBAR STRATTON DEPT 6 6 EMERGENCY JULIO CESAR VISIT HIGH PHYSICIAN SEVERITY& S THREAT FUNJ EMERGENCY 70649 DANDRE CARMONA 5 5 PHYSICIAN DEPARTMEN S, PLLC T VISIT MODERATE SEVERITY HOSPITAL [facility] - 5 5 [facility] OUTPATIEN INC T HOSPITAL [facility] - 5 5 [facility] OUTPATIEN INC T EMERGENCY 62062 DANDRE PALAFOX JR 5 5 PHYSICIAN JAM DEPARTMEN S, PLLC T VISIT MODERATE SEVERITY HOSPITAL [facility] - 5 5 [facility] OUTPATIEN INC T OFFICE 13419 [facility] OUTPATIEN 5 5 PHYSICIAN JACKELYN T VISIT S GROUP 15 MINUTES HOSPITAL RAHEL - 5 5 [facility] OUTPATIEN INC T EMERGENCY 98282 DANDRE Galvez 5 5 PHYSICIAN DEPARTMEN S, PLLC T VISIT MODERATE SEVERITY PERIODIC 24288 [facility] PREVENTIV 5 5 PHYSICIAN E MED EST S GROUP PATIENT 18-39 YRS HOSPITAL RAHEL - 5 5 [facility] OUTPATIEN INC T OFFICE 67785 [facility] OUTPATIEN 5 5 PHYSICIAN JACKELYN T NEW 45 S GROUP MINUTES EMERGENCY 25891 DANDRE CHOE 5 5 PHYSICIAN PALOMA DEPARTMEN S, [facility] T VISIT HIGH/URGE NT SEVERITY OFFICE 28117 LULU BOWEN OUTPATIEN 5 5 PRIMARY T VISIT CARE 15 CENTER MINUTES OFFICE 18249 PETTEY PETTEY OUTPATIEN 4 4 JAM JAM T NEW 30 MINUTES OFFICE 07956 MARIAH MARIAH OUTPATIEN 3 3 ADA ADA T VISIT 25 MINUTES HOSPITAL MARLENY - 3 3 W OUTPATIEN REGIONAL T MEDICAL OFFICE 92091 RAMOS PEPE RAMOS PEPE OUTPATIEN 3 3 T VISIT 10 MINUTES OFFICE 74051 ANDRELUIS CEEIDALIABER OUTPATIEN 3 3 Y ARIA Y ARIA T VISIT 15 MINUTES OFFICE 50214 LULU CARTER OUTPATIEN 3 3 PRIMARY THO T VISIT CARE 15 CENTER MINUTES HOSPITAL MARLENY - 3 3 W OUTPATIEN REGIONAL T MEDICAL EMERGENCY 89438 [facility] 3 [facility] MEDICAL LIMITED/M INOR PROB EMERGENCY 41901 MALAGON KER MALAGON KER 3 3 DEPARTMEN T VISIT MODERATE SEVERITY OFFICE 10213 JAGJIT DANIELSON OUTPATIEN 3 3 JAM JAM T VISIT 25 MINUTES OFFICE 39459 LULU CLIFTONS OUTPATIEN 3 3 PRIMARY THO T VISIT CARE 15 CENTER MINUTES HOSPITAL MEAWVIE - 3 3 W OUTPATIEN REGIONAL T MEDICAL EMERGENCY 47302 HAAKE BRA HAAKE BRA 3 3 DEPARTMEN T VISIT MODERATE SEVERITY OFFICE 40927 RICHARD RAMOS PEPE OUTPATIEN 3 3 T NEW 30 MINUTES OFFICE 10524 JAGJIT OUTPATIEN 3 3 JAM T VISIT 15 MINUTES OFFICE 25358 LULU DANIELSON OUTPATIEN 3 3 PRIMARY JAM T VISIT CARE 25 CENTER MINUTES OFFICE 81273 [facility] HOBLITZEL OUTPATIEN 3 3 LTH KENYA T NEW 30 ORTHOPAE MINUTES EMERGENCY 45694 EMERGENCY CATHERINE HO 3 3 CARE DEPARTMEN PHYS T VISIT [facility]/URGE NT [facility] RAHEL - 2 2 MEM [facility] OUTPATIEN [facility] T OFFICE 00569 [facility] 2 2 [facility] T VISIT CLINIC OF 15 JAMESON MINUTES OFFICE 08731 [facility] OUT[facility] 2 2 [facility]ALTH BRENNA T NEW 30 CLINIC OF MINUTES [facility]AMESON EMERGENCY 42070 KAROL MALAGON [facility] DEPT 2 2 EMERGENCY VISIT SERVICES HIGH SEVERITY& THREAT FUNJ PERIODIC 31459 LULU ZAVALA PREVENTIV 2 2 PRIMARY E MED EST CARE PATIENT CENTER 18-39 YRS OFFICE 45269 AWOSIKA AWOSIKA OUTPATIEN 2 2 TABITHA TABITHA T NEW 30 MINUTES HOSPITAL MARLENY - 1 1 W OUTPATIEN REGIONAL T MEDICAL OFFICE 51118 [facility] OUTPATI[facility] 1 1 TRACE DON T VISIT GASTROEN 25 MINUTES HOSPITAL GILDARDOMindyVIE - 1 1 W [facility] LANIER T MEDICAL EMERGENCY 76095 KAROL ROJELIO 1 1 EMERGENCY JESE DEPARTMEN SERVICES T VISIT HIGH/URGE NT SEVERITY OFFICE 55685 [facility] CONSULTAT 1 1 TRACE PAGE MEEK GASTROEN NEW/ESTAB PATIENT 40 MIN OFFICE 19006 LULU WILKERSON SHOBHA OUTPATIEN 1 1 PRIMARY T VISIT CARE 15 CENTER MINUTES EMERGENCY 45145 KAROL MALAGON KER 1 1 EMERGENCY DEPARTMEN SERVICES T VISIT HIGH/URGE NT SEVERITY EMERGENCY 32905 KAROL SERRATO DEPT 1 1 EMERGENCY JESE VISIT SERVICES HIGH SEVERITY& THREAT FUNCJ OFFICE 25993 LULU YEAGER OUTPATIEN 1 1 PRIMARY T VISIT CARE 25 CENTER MINUTES [facility] [place] [address] HOSPITAL INPATIENT [facility] [address] T OFFICE [address] [place] [address] HOSPITAL T VISIT [facility] 40 MINUTES OFFICE 15251 [facility] 9 9 TAHIR CAMERON, T VISIT MED [facility] [address] 9 [facility]CE [facility]TER OFFICE 86699 [facility] 9 9 TAHIR Lisa T VISIT MED CTR 15 MINUTES [address] [address] T OFFICE [address] [place] [address] HOSPITAL T VISIT [facility] 25 MINUTES [facility] [place] [id number] 9 [facility] T OFF[facility] 05685 [facility] 9 9 TAHIR DILLON T VISIT MED CTR J [address] - 9 9 TAHIR OUTPATIEN T MEDICALCE NTER OFFICE [address]09 ST SITA, OUTPATIEN 9 9 TAHIR DILLON T VISIT MED CTR J [address]ES [address] [facility] 9 ARMANDO HARO T VISIT 15 PHYSICIAN MINUTES S [facility] 33216 ROBERT JONES OUTPATIEN 9 9 M L M L T NEW 30 MINUTES OFFICE 86673 [facility] 8 8 M L M L T VISIT 15 MINUTES OFFICE 93375 [facility] 8 8 [facility] MOS[facility] J T VISIT 5 MINUTES PHYSICIAN S FOR WOMEN OFFICE 80459 [facility] ALICEA 8 8 PRIMARY MARIO P T VISIT CARE [address]ES [address] [facility] 8 8 [facility] T VISIT URGENT 15 CARE MINUTES EMERGENCY 52921 EMERGENCY MICAH, 8 8 CARE SHERI D DEPARTMEN PHYS T VISIT [facility] HIGH/URGE [place] NT SEVERITY OFFICE 41338 [facility] 8 8 PO[address] YSANCHEZ T VISIT FAMILY V 10 CARE, MINUTES INC. OFFICE 45058 [facility] 8 8 TRACE KULWANT A T VISIT GASTROENT 15 EROLOGY MINUTES OFFICE 48465 [facility] GALEAS 8 8 TRACE KULWANT A T VISIT GASTROENT 15 EROLOGY MINUTES OFFICE 23666 [facility]LEY LEROY 8 8 PRIMARY SANIA E T VISIT CARE 25 CENTERINC MINUTES OFFICE 94466 [facility] ALICEA 8 8 PRIMARY MARIO P T VISIT CARE 15 CENTERINC MINUTES [facility] 8 8 W [facility] OFFICE 03516 [facility] 8 8 POINT SANIA Brennan T VISIT FAMILY 15 [facility].
--- OUTSIDE RECORDS SUMMARY | 2017-04-13 07:36 | External Medical Summary Rpt | CCD ---
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 [facility] GRAM/GIEM SA STAIN BCT FUNGI/T[place] [address] JON ALICEA 9 PRIMARY MARIO P S [facility] ABSCESS CENTERINC CUL BACT 80922 [facility] XCPT 9 [facility] URINE BLOOD/STO OL AEROBIC ISOL CULTURE 14598 [facility] BACTERIAL 9 [facility] ANY SOURCE ANAEROBIC ISO&ID CUL BACT 46550 [facility] AEROBIC 9 [facility] ADDL METHS DEFINITIV E EA ISOL US PREG 48484 GREATER VANHOOK, UTERUS 9 [facility] Gu[facility]en REAL TIME I F/U TRNSABDL ASSOC PER [employer] NEURAXIAL [address] ST LAI, LABOR 9 TAHIR IVEY F ANALG/ANE MED CTR S PLND VAGINAL DELIVERY OTHER 7359 [facility] MANUALLY [address] [place] [address] ASSISTED [facility] DELIVERY OTHER 7534 [facility] [address] [place] [address] MONITORIN [facility] G 87790 GREATER VANHOOK, BIOPHYSIC 9 RAFAEL Guillen AL I PROFILE W/O ASSOC NON[employer]ES [employer] S TESTING OBSERVATI 25570 [facility], ON/INPATI 9 TAHIR MOSES Keyes ENT MED CTR HOSPITAL CARE [address] DIAZ, NONSTRESS 9 TAHIR MOSES Keyes TEST MED CTR AMNIOCENT 74828 EMILY, ESIS 9 TAHIR MOSES Keyes DIAGNOSIC MED CTR IADNA 78755 [facility] CHLAMYDIA 9 [facility] TRACHOMAT MEDICALCE MEDICALCE IS NTER NTER AMPLIFIED PROBE TQ IADNA 04246 [facility] STREPTOCO 9 [facility] CCUS GROUP B MEDICALCE MEDICALCE AMPLIFIED NTER NTER PROBE TQ IADNA 52982 [facility] NEISSERIA 9 [facility] GONORRHOE MEDICALCE MEDICALCE AE NTER NTER AMPLIFIED PROBE TQ [place] PREG 08090 [facility] UTERUS [address] [place] [address] REAL TIME [facility] F/U TRNSABDL PER FETUS CUL BACT 95350 [facility] XCPT 9 [facility] URINE BLOOD/STO MEDICALCE MEDICALCE OL NTER [place]OBIC ISOL [place] [address] BOHME, BARTHOLIN 9 [place] [facility] J ABSCESS GLUCOSE 72872 [facility] POST 9 [facility] GLUCOSE DOSE MEDICALCE MEDICALCE NTER NTER BLOOD 47488 [facility] COUNT 9 [facility] COMPLETE AUTO&AUTO MEDICALCE MEDICALCE DIFRNTL NTER NTER WBC COLLECTIO 66508 [facility] N VENOUS 9 [facility] BLOOD VENIPUNCT MEDICALCE MEDICALCE URE NTER NTER SMR PRIM 77059 [facility] SRC 9 [facility] GRAM/GIEM SA STAIN MEDICALCE MEDICALCE BCT NTER NTER FUNGI/TIA L CULTURE 75614 [facility] TYPING 9 [facility] NUCLEIC ACID MEDICALCE MEDICALCE PROBE DIR NTER NTER EA ORGANSM OPHTH 15160 [facility] 9 VISION EVA A XM&EVAL COMPRHNSV ESTAB PT 1/> US PREG [id number] [facility] UTERUS 9 [facility] W/DETAIL EAST EAST WILFRED 1ST GESTATION IADNA 58557 [facility] CHLAMYDIA 8 [facility] TRACHOMAT IS AMPLIFIED PROBE TQ CYTP C/V 48057 [facility] AUTO THIN 8 [facility] LYR PREPJ SCR MNL RESCR PHYS IADNA 14279 [facility] NEISSERIA 8 [facility] GONORRHOE AE AMPLIFIED PROBE TQ MOLECULAR 45064 [facility] DAVIS 8 RUY REDMOND DIAGNOSTI [facility] INTERPRET ATION & REPORT MUTATION 83336 [facility] ID 8 RUY REDMOND ENZYMATIC [facility] LIG/PRIME R XTN 1 SGM EA MOLECULAR 03246 [facility] DX AMP 8 RUY REDMOND TARGET [facility] EA ADDL SEQ MOLEC 88225 [facility] SEP&ID HI 8 RUY REDMOND RESOLU TQ [facility] NUCLEIC ACID PREP MOLECULAR 75049 [facility] DAV[facility] DX AMP 8 RUY REDMOND [facility] 1ST 2 SEQ MOLEC 67010 [facility] DAVIS ISOL/XTRJ 8 RUY REDMOND HP NUCLEIC [facility] ACID EA TYPE CUL BACT 10873 [facility] XCPT 8 [facility] URINE BLOOD/[place]IC ISOL [place] [address] JON ALICEA 8 PRIMARY MARIO P S [facility]ESS CENTERINC CUL BACT 65778 [facility] ANAEROBIC 8 [facility] INC ADDL METHS DEFINITIV E EA ISOL CULTURE 85135 [facility] BACTERIAL 8 [facility] ANY SOURCE ANAEROBIC ISO&ID SMR PRIM 24593 [facility] SRC 8 [facility] GRAM/GIEM SA STAIN BCT FUNGI/TIA L AMB A0422 HERNAN BECERRA OXYGEN&O2 8 CO FIRE Copious FIRE SUPPLIES PROTECTIO PROTECTIO LIFE N DIST #1 N DIST #1 SUSTAININ G SITUATION GROUND A0425 HERNAN BECERRA MILEAGE 8 CO FIRE CO FIRE PER PROTECTIO PROTECTIO STATUTE N DIST #1 N DIST #1 MILE AMBULANCE A0429 HERNAN BECERRA SERVICE 8 CO FIRE CO FIRE BLS PROTECTIO PROTECTIO EMERGENCY N DIST #1 N DIST #1 TRANSPORT SMPL 40732 EMERGENCY MICAH, REPAIR 8 CARE SHERI D SCALP/NEC PHYS K/AX/FERNANDEZ [facility] T/TRUNK [place] 2.6-7.5CM RADEX HIP 85109 RADIOLOGY LAIB, 8 HENNY H UNILATERA ASSOCIATE L S PSC COMPLETE MINIMUM 2 VIEWS URNLS DIP 47490 MEADOWVIE MEADOWVIE 8 W W STICK/TAB [facility] CENTER AUTO MICROSCOP Y CULTURE 31738 MEADOWVIE MEADOWVIE BACTERIAL 8 W [facility] QUANTTATI [facility] VE [place]ONY [place] [address] [facility] NON-IMMUN 8 [facility] [place] INC OLOGIC OTH/THN CYTOPATHI C Encounters Encounter Start End Date Code Location Performer Type Date EMERGENCY 70047 [facility] 7 7 EMERGENCY DEPARTMEN T VISIT PHYSICIAN HIGH/URGE S NT SEVERITY OFFICE 15644 [facility] 7 7 FAMILY T VISIT [facility] [address] - 7 7 TAHIR OUTPATIEN T [facility] OFFICE 11859 [facility] 7 7 TAHIR ION NEW/ESTAB PHYSICIAN PATIENT S [address] - 7 7 TAHIR OUTPATIEN T [facility] RAHEL - 7 7 [facility] OUTPATIEN INC T EMERGENCY 39310 RAHEL 7 7 [facility] DEPARTMEN INC T VISIT LOW/MODER SEVERITY HOSPITAL RAHEL - 7 7 [facility] OUTPATIEN INC T OFFICE 37023 RAHEL WORKMANPATIEN 7 7 [facility] T VISIT 5 INC MINUTES EMERGENCY 53497 RAHEL 7 7 [facility] DEPARTMEN INC T VISIT LOW/MODER SEVERITY HOSPITAL RAHEL - 7 7 [facility] OUTPATIEN INC T EMERGENCY 85964 DANDRE CHOE DEPT 7 7 PHYSICIAN VISIT S, PLLC HIGH SEVERITY& THREAT FUNCJ EMERGENCY 28557 RAHEL 7 7 MEM [facility] DEPARTMEN INC T VISIT MODERATE SEVERITY HOSPITAL RAHEL - 7 7 [facility] OUTPATIEN INC T EMERGENCY 99087 AMBAR ALVES 7 7 EMERGENCY DEPARTMEN T VISIT PHYSICIAN HIGH/URGE S NT SEVERITY HOSPITAL RAHEL - 6 6 [facility] OUTPATIEN INC T EMERGENCY 70957 DANDRE CHOE 6 6 PHYSICIAN DEPARTMEN S, PLLC T VISIT HIGH/URGE NT SEVERITY EMERGENCY 27954 RAHEL 6 6 MEM [facility]OS[facility] DEPARTMEN INC T VISIT LOW/MODER SEVERITY OFFICE 30898 LULU HERRERAE OUTPATIEN 6 6 FAMILY T VISIT HEALTH 15 CTR MINUTES OFFICE 48578 COLD OUTPATIEN 6 6 [place] [place] 45 URGENT MINUTES CARE EMERGENCY 01547 AMBAR STRATTON DEPT 6 6 EMERGENCY JULIO CESAR VISIT HIGH PHYSICIAN SEVERITY& S THREAT FUNJ EMERGENCY 33737 DANDRE CARMONA 5 5 PHYSICIAN DEPARTMEN S, PLLC T VISIT MODERATE SEVERITY HOSPITAL RAHEL - 5 5 [facility] OUTPATIEN INC T HOSPITAL RAHEL - 5 5 [facility] OUTPATIEN INC T EMERGENCY 17525 DANDRE PALAFOX JR 5 5 PHYSICIAN JAM DEPARTMEN S, PLLC T VISIT MODERATE SEVERITY HOSPITAL RAHEL - 5 5 [facility] OUTPATIEN INC T OFFICE 83884 [facility] OUTPATIEN 5 5 PHYSICIAN JACKELYN T VISIT S GROUP 15 MINUTES HOSPITAL RAHEL - 5 5 [facility] OUTPATIEN INC T EMERGENCY 52218 DANDRE Galvez 5 5 PHYSICIAN DEPARTMEN S, PLLC T VISIT MODERATE SEVERITY PERIODIC 98641 [facility] PREVENTIV 5 5 PHYSICIAN E MED EST S GROUP PATIENT 18-39 YRS HOSPITAL RAHEL - 5 5 [facility] OUTPATIEN INC T OFFICE 39186 [facility] 5 5 PHYSICIAN JACKELYN T NEW 45 S GROUP MINUTES EMERGENCY 44815 DANDRE CHOE 5 5 PHYSICIAN PALOMA DEPARTMEN S, [facility] T VISIT HIGH/URGE NT SEVERITY OFFICE 14110 LULU BOWEN OUTPATIEN 5 5 PRIMARY T VISIT CARE 15 CENTER MINUTES OFFICE 43845 PETTEY PETTEY OUTPATIEN 4 4 JAM JAM T NEW 30 MINUTES OFFICE 07877 MARIAH MARIAH OUTPATIEN 3 3 ADA ADA T VISIT 25 MINUTES HOSPITAL MARLENY - 3 3 W OUTPATIEN REGIONAL T MEDICAL OFFICE 82920 RAMOS PEPE RAMOS PEPE OUTPATIEN 3 3 T VISIT 10 MINUTES OFFICE 80528 ANDRELUIS CEEIDALIABER OUTPATIEN 3 3 Y ARIA Y ARIA T VISIT 15 MINUTES OFFICE 57438 LULU CARTER OUTPATIEN 3 3 PRIMARY THO T VISIT CARE 15 CENTER MINUTES HOSPITAL MARLENY - 3 3 W OUTPATIEN REGIONAL T MEDICAL EMERGENCY 70165 MARLENY 3 3 W [facility] T VISIT MEDICAL LIMITED/M INOR PROB EMERGENCY 07401 MALAGON KER MALAGON KER 3 3 DEPARTMEN T VISIT MODERATE SEVERITY OFFICE 29674 JAGJIT DANIELSON OUTPATIEN 3 3 JAM JAM T VISIT 25 MINUTES OFFICE 60138 LULU CLIFTONS OUTPATIEN 3 3 PRIMARY THO T VISIT CARE 15 CENTER MINUTES HOSPITAL MEAWVIE - 3 3 W OUTPATIEN REGIONAL T MEDICAL EMERGENCY 31534 HAAKE BRA HAAKE BRA 3 3 DEPARTMEN T VISIT MODERATE SEVERITY OFFICE 79843 RICHARD RAMOS PEPE OUTPATIEN 3 3 T NEW 30 MINUTES OFFICE 15153 JAGJIT OUTPATIEN 3 3 JAM T VISIT 15 MINUTES OFFICE 37828 LULU DANIELSON OUTPATIEN 3 3 PRIMARY JAM T VISIT CARE 25 CENTER MINUTES OFFICE 41553 COMMON[facility] HOBLITZEL OUTPATIEN 3 3 LTH KENYA T NEW 30 ORTHOPAE MINUTES EMERGENCY 42739 EMERGENCY CATHERINE HO 3 3 CARE DEPARTMEN PHYS T V[facility]IT [facility]PITAL RAHEL - 2 2 [facility] OUTPATIEN [facility] T OFFICE 69973 [facility] 2 2 HEALTH BRENNA T VISIT CLINIC OF 15 JAMESON MINUTES OFFICE 61072 [facility] 2 2 HEALTH BRENNA T NEW 30 CLINIC OF MINUTES JAMESON EMERGENCY 64535 KAROL MALAGON [facility] DEPT 2 2 EMERGENCY VISIT SERVICES HIGH SEVERITY& THREAT FUNJ PERIODIC 03179 LULU ZAVALA PREVENTIV 2 2 PRIMARY E MED EST CARE PATIENT CENTER 18-39 YRS OFFICE 51283 AWOSIKA AWOSIKA OUTPATIEN 2 2 TABITHA TBAITHA T NEW 30 MINUTES HOSPITAL MARLENY - 1 1 W OUTPATIEN REGIONAL T MEDICAL OFFICE 95294 [facility] 1 1 TRACE DON T VISIT GASTROEN 25 MINUTES HOSPITAL GILDARDOMindyVIE - 1 1 [facility] T MEDICAL EMERGENCY 35206 KAROL ROJELIO 1 1 EMERGENCY JESE DEPARTMEN SERVICES T VISIT HIGH/URGE NT SEVERITY OFFICE 57327 [facility] 1 1 TRACE PAGE MEEK GASTROEN NEW/ESTAB PATIENT 40 MIN OFFICE 33894 LULU WILKERSON SHOBHA OUTPATIEN 1 1 PRIMARY T VISIT CARE 15 CENTER MINUTES EMERGENCY 92691 KAROL MALAGON KER 1 1 EMERGENCY DEPARTMEN SERVICES T VISIT HIGH/URGE NT SEVERITY EMERGENCY 24967 KAROL SERRATO DEPT 1 1 EMERGENCY JESE VISIT SERVICES HIGH SEVERITY& THREAT FUNCJ OFFICE 64093 LULU YEAGER OUTPATIEN 1 1 PRIMARY T VISIT CARE 25 CENTER MINUTES [facility] [place] [address] HOSPITAL INPATIENT [facility] [address] T OFFICE [address] [place] [address] HOSPITAL T VISIT [facility] 40 MINUTES OFFICE 15664 [facility] 9 9 TAHIR CAMERON, T VISIT MED CTR JORDAN [address] 9 [facility] T MEDICALCE NTER OFFICE 44271 [facility] 9 9 TAHIR Lisa T VISIT MED CTR 15 MINUTES [address]ITAL [address] T OFFICE [address] [place] [address] HOSPITAL T VISIT [facility] 25 MINUTES [facility] [place] [address] 9 [facility] T OFF[facility] 64265 [facility] 9 9 TAHIR DILLON T VISIT MED CTR J [address] - 9 9 TAHIR OUTPATIEN T MEDICALCE NTER OFFICE 50350 ST SITA, OUTPATIEN 9 9 TAHIR DILLON T VISIT MED CTR J [address]ES [address] [facility] 9 9 ARMANDO HARO T VISIT 15 PHYSICIAN MINUTES S [facility] - 9 9 [facility] T OFFICE 36187 ROBERT JONES OUTPATIEN 9 9 M L M L T NEW 30 MINUTES OFFICE 75165 [facility] 8 8 M L M L T VISIT [address]ES [address] [facility] 8 8 [facility] MOSES J T VISIT 5 MINUTES PHYSICIAN S FOR WOMEN OFFICE 37364 MILEY ALICEA 8 8 PRIMARY MARIO P T VISIT CARE 25 CENTERINC MINUTES OFFICE 71649 [facility] 8 8 [facility] T VISIT URGENT 15 CARE MINUTES EMERGENCY 96879 EMERGENCY MICAH, 8 8 CARE SHERI D DEPARTMEN PHYS T VISIT [facility] HIGH/URGE [place] NT SEVERITY OFFICE 97437 [facility] 8 8 POINT YSANCHEZ T VISIT FAMILY V 10 CARE, MINUTES INC. OFFICE 18905 [place] [facility] 8 8 TRACE KULWANT A T VISIT GASTROENT 15 EROLOGY MINUTES OFFICE 67027 [place] MILEY GALEAS 8 8 TRACE KULWANT A T VISIT GASTROENT 15 EROLOGY MINUTES OFFICE 64545 MILEY LEROY 8 8 PRIMARY SANIA E T VISIT CARE 25 CENTERINC MINUTES OFFICE 04871 MILEY ALICEA 8 8 PRIMARY MARIO P T VISIT CARE 15 CENTERINC MINUTES [facility] 8 8 W [facility] OFFICE 65791 [facility] 8 8 POINT SANIA Brennan T VISIT FAMILY 15 [facility].
--- OUTSIDE RECORDS SUMMARY | 2017-04-13 07:43 | External Medical Summary Rpt | CCD ---
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 VIEWS RADEX 27021 RADIOLOGY GISEL SHOULDER 3 III JOCE COMPLETE ASSOCIATE MINIMUM 2 S OF NOTH VIEWS RADEX 71619 RADIOLOGY AMERICO WRIST 3 TUS COMPLETE ASSOCIATE MINIMUM 3 S OF NOTH VIEWS RADEX 01774 RADIOLOGY AMERICO HUMERUS 3 TUS MINIMUM 2 ASSOCIATE VIEWS S OF NOTH RADEX 57539 RADIOLOGY AMERICO ELBOW 3 TUS COMPLETE ASSOCIATE MINIMUM 3 S OF NOTH VIEWS BASIC 29582 RAHEL MCGINNIS METABOLIC 2 [facility] PANEL INC INC CALCIUM TOTAL URINE 68459 RAHEL MCGINNIS 2 [facility] TEST INC [place] [address] RAHEL MCGINNIS INFUSION 2 [facility] THERAPY INC INC PROPHYLAX IS/DX EA HOUR INJECTION J2405 RAHEL MCGINNIS 2 [facility] ONDANSETR INC INC ON HCL PER 1 MG LAPAROSCO 87050 RAHEL MCGINNIS PY W/PLMT 2 [facility] HOS[facility] INC INC OCCLUSION DEVICE OVIDUCTS ANES IPER 12363 [facility] MUNOZ DARIAN LWR ABD 2 ANESTH W/LAPS OF THE TUBAL BLUE LIGATION/ TRANSECT BLOOD 53402 RAHEL MCGINNIS COUNT 2 [facility] COMPLETE INC INC AUTO&AUTO DIFRNTL WBC CYTP C/V 06386 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 THIN 2 Y & Y & LYR BIODIAGNO BIODIAGNO PREPJ SCR STICS STICS MNL RESCR PHYS DETERMINA 28870 AWOSIKA AWOSIKA TION 2 TABITHA TABITHA REFRACTIV E STATE COLONOSCO 87936 MEADOWVIE MEADOWVIE PY 1 W W W/BIOPSY REGIONAL REGIONAL SINGLE/ [place] [address] MEADOWVIE MEADOWVIE SURG 1 W W PATHOLOGY [facility] MEDICAL GROSS&PALOMA ROSCOPIC EXAM URINE 89470 MEADOWVIE MEADOWVIE 1 W W TEST [facility] MEDICAL COLOR CMPRSN METHS LEVEL III 69235 AMERIPATH KIERRA SURG 1 [place] INC JAM PATHOLOGY GROSS&PALOMA ROSCOPIC EXAM LAPS SURG 03051 MEADOWVIE MEADOWVIE 1 W W CHOLECYST REGIONAL [facility] ECTOM[facility] MEDICAL MEDICAL W/CHOLANG IOGRAPHY CHOLANGIO 92826 [facility] GRAPHY&/P 1 EIDER WESLY ANCREATOG RADIOLOGY MORALES ASSOCIAT NTRAOP RS&I ECG 29171 KAROL SERRATO ROUTINE 1 EMERGENCY JESE ECG SERVICES W/LEAST 12 LDS I&R ONLY RADIOLOGI 31527 [facility] EXAM 1 KENYA CHEST 2 RADIOLOGY VIEWS ASSOCIAT FRONTAL&[place] [address] [facility] ABDOMINAL 1 EIDER WESLY REAL RADIOLOGY TIME ASSOCIAT W/[place] [address] [facility] ABDOMEN 1 W/O & DIAGNOSTI DIAGNOSTI W/CONTRAS C CENTER, C CENTER, [place] [address] [facility] ABDOMEN & 1 KENYA PELVIS RADIOLOGY W/O ASSOCIAT CONTRST 1/> BODY RE 3D 40989 [facility] RENDERING 1 DIAGNOSTI DIAGNOSTI W/INTERP& C CENTER, C CENTER, POSTPROC DIFF WORK STATION CT PELVIS 52972 [facility] W/O & 1 W/CONTRAS DIAGNOSTI DIAGNOSTI T C [place], C CENTER, [place] [address] LULU CO JON CANTU 9 PRIMARY MARIO P S [facility] ABSCESS CENTERINC CUL BACT 23797 [facility] XCPT 9 [facility] URINE BLOOD/STO OL AEROBIC ISOL CULTURE 51032 [facility] BACTERIAL 9 [facility] ANY SOURCE ANAEROBIC ISO&ID CUL BACT 78353 [facility] AEROBIC 9 [facility] ADDL METHS DEFINITIV E EA ISOL CUL BACT 97163 [facility] ANAEROBIC 9 [facility] ADDL METHS DEFINITIV E EA ISOL SUSCEPTIB 50129 [facility] LTY STDY 9 [facility] ANTIMICRB IAL MICRO/AGA R DILUTJ SMR PRIM 74657 [facility] SRC 9 Figure 1 [facility] Figure 1 [facility] GRAM/GIEM SA STAIN BCT FUNGI/TIA L US PREG 57720 BRIGIDA FIERRO, UTERUS 9 [facility] BENJY W REAL TIME I F/U TRNSABDL ASSOC PER [employer] NEURAXIAL [address] ST LAI, LABOR 9 TAHIR IVEY F ANALG/ANE MED CTR S PLND VAGINAL DELIVERY 52783 BRIGIDA FIERRO, BIOPHYSIC 9 [facility] BENJY W AL I PROFILE W/O ASSOC NON[employer] S TESTING OTHER 7534 [facility] [address] [place] [address] MONITORIN [facility] G OTHER 7359 [facility] MANUALLY [address] [place] [address] ASSISTED [facility] DELIVERY AMNIOCENT [address]32 ST DIAZ, ESIS 9 TAHIR Keyes DIAGNOSIC MED CTR OBSERVATI 43599 ST DIAZ, ON/INPATI 9 TAHIR Keyes ENT MED CTR HOSPITAL CARE 50 MINUTES 09400 [facility] NONSTRESS [address] [place] [address] HOSPITAL TEST [facility] IADNA 74674 [facility] NEISSERIA 9 [facility] GONORRHOE MEDICALCE MEDICALCE AE NTER NTER AMPLIFIED PROBE TQ IADNA 61310 [facility] CHLAMYDIA 9 [facility] TRACHOMAT MEDICALCE MEDICALCE IS NTER NTER AMPLIFIED PROBE TQ IADNA 32283 [facility] STREPTOCO 9 [facility] CCUS GROUP B MEDICALCE MEDICALCE AMPLIFIED NTER [place]TER [place]BE TQ [place] PREG 25458 [facility] UTERUS [address] [place] [address] HOSPITAL REAL TIME [facility] F/U TRNSABDL PER FETUS SMR PRIM 55098 [facility] SRC 9 [facility] GRAM/GIEM SA STAIN MEDICALCE MEDICALCE BCT NTER NTER FUNGI/TIA L CULTURE 50154 [facility] TYPING 9 [facility] NUCLEIC ACID MEDICALCE MEDICALCE PROBE DIR NTER NTER EA ORGANSM CUL BACT 52411 [facility] XCPT 9 [facility] URINE BLOOD/STO MEDICALCE MEDICALCE OL NTER NTER AEROBIC ISOL COLLECTIO 19155 [facility] N VENOUS 9 [facility] BLOOD VENIPUNCT MEDICALCE [place]ICAL[place] [address] BOHME, BARTHOLIN 9 TAHIR WILMA S [facility] J ABSCESS GLUCOSE 58414 [facility] POST 9 [facility] GLUCOSE DOSE MEDICALCE MEDICALCE NTER NTER BLOOD 68245 [facility] COUNT 9 [facility] COMPLETE AUTO&AUTO MEDICALCE MEDICALCE DIFRNTL NTER NTER WBC OPHTH 00855 [facility], MEDICAL 9 VISION EVA A XM&EVAL COMPRHNSV ESTAB PT 1/> US PREG 63916 GREATER LULU, UTERUS 9 [facility] ARGENIS F W/DETAIL I WILFRED 1ST ASSOC [employer] CYTP C/V 28257 [facility] AUTO THIN 8 [facility] LYR PREPJ SCR MNL RESCR PHYS IADNA 86750 [facility] CHLAMYDIA 8 [facility] TRACHOMAT IS AMPLIFIED PROBE TQ IADNA 67449 [facility] NEISSERIA 8 [facility] GONORRHOE AE AMPLIFIED PROBE TQ MOLECULAR 87147 [facility] DAVIS QUEST DAVIS DX AMP 8 RUY REDMOND [facility] 1ST 2 SEQ MOLECULAR 62813 QUEST DAVIS QUEST DAVIS 8 RUY REDMOND DIAGNOSTI [facility] INTERPRET ATION & REPORT MUTATION 02616 QUEST DAVIS QUEST DAVIS ID 8 RUY REDMOND ENZYMATIC [facility] LIG/PRIME R XTN 1 SGM EA MOLEC 02933 QUEST DAVIS QUEST DAVIS ISOL/XTRJ 8 RUY REDMOND HP NUCLEIC [facility] ACID EA TYPE MOLECULAR 77887 QUEST DAVIS QUEST DAVIS DX AMP 8 RUY REDMOND [facility] EA ADDL SEQ MOLEC 87943 QUEST DAVIS QUEST DAVIS SEP&ID HI 8 RUY REDMOND RESOLU TQ [facility] [place] PRE[place] [address] LULU CO MEESE, JYOTIOLIN 8 PRIMARY MARIO P S [facility] ABSCESS CENTERINC SMR PRIM 08055 [facility] SRC 8 [facility] Figure 1 [facility] GRAM/GIEM SA STAIN BCT FUNGI/TIA L CUL BACT 17626 [facility] ANAEROBIC 8 [facility] ADDL METHS DEFINITIV E EA ISOL CUL BACT 32009 [facility] XCPT 8 [facility] URINE BLOOD/STO OL AEROBIC ISOL CULTURE 54645 [facility] BACTERIAL 8 [facility] ANY SOURCE ANAEROBIC ISO&ID RADEX HIP 05785 RADIOLOGY LAIB, 8 HENNY H UNILATERA ASSOCIATE L S PSC COMPLETE MINIMUM 2 VIEWS SMPL 72293 EMERGENCY MICAH, REPAIR 8 CARE SHERI D SCALP/NEC PHYS K/AX/FERNANDEZ [facility] T/TRUNK [place] 2.6-7.5CM AMB A0422 [employer] OXYGEN&O2 8 CO FIRE CO FIRE SUPPLIES PROTECTIO PROTECTIO LIFE N DIST #1 N DIST #1 SUSTAININ G SITUATION GROUND A0425 [employer] MILEAGE 8 CO FIRE CO FIRE PER PROTECTIO PROTECTIO STATUTE N DIST #1 N DIST #1 MILE AMBULANCE A0429 [employer] SERVICE 8 CO FIRE CO FIRE BLS PROTECTIO PROTECTIO EMERGENCY N DIST #1 N DIST #1 TRANSPORT CULTURE 44185 GILDARDOWHELDER MEADOWVIE BACTERIAL 8 W W [facility] MEDICAL VE COLONY CENTER CENTER COUNT URINE URNLS DIP 44266 MEADOWHELDER MEADOWVIE 8 W W STICK/TAB [facility] MEDICAL REAGENT CENTER [place] [address] [facility] NON-IMMUN 8 [facility] INC OLOGIC OTH/THN CYTOPATHI C Encounters Encounter Start End Date Code Location Performer Type Date EMERGENCY 26132 [facility] 7 7 EMERGENCY DEPARTMEN T VISIT PHYSICIAN HIGH/URGE S NT SEVERITY OFFICE 18227 [facility]ERR[facility] 7 7 FAMILY T VISIT HEALTH 15 CTR MINUTES HOSPITAL - 7 7 [facility]IR [facility] OFF[facility] 05141 [facility] 7 7 TAHIR ION NEW/ESTAB PHYSICIAN PATIENT S 60 MIN HOSPITAL [facility] 7 7 [facility] RAHEL - 7 7 [facility] OUTPATIEN [facility] T EMERGENCY 49656 RAHEL 7 7 MEM H[facility] DEPARTMEN INC T VISIT LOW/MODER SEVERITY HOSPITAL RAHEL - 7 7 [facility] OUTPATIEN [facility] T OFFICE 24129 RAHEL TRENT 7 7 MEM HOS[facility] T VISIT 5 INC MINUTES EMERGENCY 92872 DANDRE CHOE DEPT 7 7 PHYSICIAN VISIT S, PLLC HIGH SEVERITY& THREAT [facility] RAHEL - 7 7 [facility] OUTPATIEN INC T EMERGENCY 64082 RAHEL 7 7 MEM [facility] DEPARTMEN INC T VISIT LOW/MODER SEVERITY HOSPITAL RAHEL - 7 7 [facility] OUTPATIEN INC T EMERGENCY 93049 RAHEL 7 7 MEM [facility] DEPARTMEN INC T VISIT MODERATE SEVERITY EMERGENCY 39243 AMBAR ALVES 7 7 EMERGENCY DEPARTMEN T VISIT PHYSICIAN HIGH/URGE S NT SEVERITY EMERGENCY 31429 DANDRE CHOE 6 6 PHYSICIAN DEPARTMEN S, PLLC T VISIT HIGH/URGE NT SEVERITY EMERGENCY 36818 RAHEL 6 6 [facility] DEPARTMEN INC T VISIT LOW/MODER SEVERITY HOSPITAL RAHEL - 6 6 [facility] OUTPATIEN INC T OFFICE 48672 LULU MOHAMUD OUTPATIEN 6 6 FAMILY T VISIT HEALTH 15 CTR MINUTES OFFICE 29547 COLD OUTPATIEN 6 6 SPRING T NEW 45 URGENT MINUTES CARE EMERGENCY 87808 AMBAR STRATTON DEPT 6 6 EMERGENCY JULIO CESAR VISIT HIGH PHYSICIAN SEVERITY& S THREAT [facility] EMERGENCY 08662 DANDRE CARMONA 5 5 PHYSICIAN DEPARTMEN S, PLLC T VISIT MODERATE SEVERITY HOSPITAL RAHEL - 5 5 [facility] OUTPATIEN INC T HOSPITAL RAHEL - 5 5 [facility] OUTPATIEN INC T EMERGENCY 84051 DANDRE PALAFOX JR 5 5 PHYSICIAN JAM DEPARTMEN S, PLLC T VISIT MODERATE SEVERITY HOSPITAL RAHEL - 5 5 MEM [facility] OUTPATIEN INC T OFFICE 74932 [facility] HAQUE OUTPATIEN 5 5 PHYSICIAN JACKELYN T VISIT S GROUP 15 MINUTES HOSPITAL RAHEL - 5 5 MEM [facility] OUTPATIEN INC T EMERGENCY 49136 DANDRE Galvez 5 5 PHYSICIAN DEPARTMEN S, PLLC T VISIT MODERATE SEVERITY PERIODIC 95674 [facility] PREVENTIV 5 5 PHYSICIAN E MED EST S GROUP PATIENT 18-39 YRS HOSPITAL RAHEL - 5 5 [facility] OUTPATIEN INC T OFFICE 80338 [facility] OUTPATIEN 5 5 PHYSICIAN JACKELYN T NEW 45 S GROUP MINUTES EMERGENCY 44795 DANDRE CHOE 5 5 PHYSICIAN PALOMA DEPARTMEN S, PLLC T VISIT HIGH/URGE NT SEVERITY OFFICE 33838 LULU BOWEN OUTPATIEN 5 5 PRIMARY T VISIT CARE 15 CENTER MINUTES OFFICE 10308 PETTEY PETTEY OUTPATIEN 4 4 JAM JAM T NEW 30 MINUTES OFFICE 88385 MARIAH LEMUS OUTPATIEN 3 3 ADA ADA T VISIT 25 MINUTES HOSPITAL MARLENY - 3 3 W OUTPATIEN REGIONAL T MEDICAL OFFICE 38726 RICHARD RAMOS PEPE OUTPATIEN 3 3 T VISIT 10 MINUTES OFFICE 83413 ABEL POWELLBER OUTPATIEN 3 3 Y ARIA Y ARIA T VISIT 15 MINUTES OFFICE 01635 LULU CARTER OUTPATIEN 3 3 PRIMARY THO T VISIT CARE 15 CENTER MINUTES EMERGENCY 40214 MARLENY 3 3 W DEPARTMEN REGIONAL T VISIT MEDICAL LIMITED/M INOR PROB EMERGENCY 41687 MALAGON KER MALAGON KER 3 3 DEPARTMEN T VISIT MODERATE SEVERITY HOSPITAL MARLENY - 3 3 W OUTPATIEN REGIONAL T MEDICAL OFFICE 56788 JAGJIT JAGJIT OUTPATIEN 3 3 JAM JAM T VISIT 25 MINUTES OFFICE 95649 LULU CARTER OUTPATIEN 3 3 PRIMARY THO T VISIT CARE 15 CENTER MINUTES HOSPITAL MARLENY - 3 3 W OUTPATIEN REGIONAL T MEDICAL EMERGENCY 32853 MEADOWVIE 3 3 W DEPARTMEN REGIONAL T VISIT MEDICAL MODERATE SEVERITY OFFICE 59730 RICHARD CANTU OUTPATIEN 3 3 T NEW 30 MINUTES OFFICE 64017 JAGJIT OUTPATIEN 3 3 JAM T VISIT 15 MINUTES OFFICE 27174 LULU DANIELSON OUTPATIEN 3 3 PRIMARY JAM T VISIT CARE 25 CENTER MINUTES OFFICE 95121 [facility] JOELLITZEL OUTPATIEN 3 3 [facility] KENYA T NEW 30 ORTHOPAE MINUTES EMERGENCY 18071 EMERGENCY CATHERINE HO 3 3 [facility] T VISIT [facility] HIGH/URGE NT [facility] RAHEL - 2 2 MEM H[facility] OUTPATIEN [facility] T OFFICE 99026 [facility] 2 2 HEALTH BRENNA T VISIT CLINIC OF 15 JAMESON MINUTES OFFICE 89134 [facility] OUT[facility] 2 2 HEALTH BRENNA T NEW 30 CLINIC OF MINUTES JAMESON EMERGENCY 49157 KAROL MALAGON [facility] [place] DEPT 2 2 EMERGENCY VISIT SERVICES HIGH SEVERITY& THREAT FUNCJ PERIODIC 10151 LULU ZAVALA PREVENTIV 2 2 PRIMARY E MED EST CARE PATIENT CENTER 18-39 YRS OFFICE 74957 AWOSIKA AWOSIKA OUTPATIEN 2 2 TABITHA TABITHA T NEW 30 MINUTES HOSPITAL MARLENY - 1 1 [facility] 56363 [facility] OUTPATI[facility] 1 1 TRACE DON T VISIT GASTROEN 25 MINUTES HOSPITAL GILDARDOWVIE - 1 1 W [facility] T MEDICAL EMERGENCY 30966 KAROL LOFTONPARKER 1 1 EMERGENCY JESE DEPARTMEN SERVICES T VISIT HIGH/URGE NT SEVERITY OFFICE 40621 [facility] GALEAS CONSULTAT 1 1 TRACE DON ION GASTROEN NEW/ESTAB PATIENT 40 MIN EMERGENCY 80658 KAROL NEWUT KER 1 1 EMERGENCY DEPARTMEN SERVICES T VISIT HIGH/URGE NT SEVERITY OFFICE 70029 LULU CO NEUS SHOBHA OUTPATIEN 1 1 PRIMARY T VISIT CARE 15 CENTER MINUTES EMERGENCY 34983 KAROL SERRATO DEPT 1 1 EMERGENCY JESE VISIT SERVICES HIGH SEVERITY& THREAT FUNCJ OFFICE 38158 LULU CO NEUS SHOBHA OUTPATIEN 1 1 PRIMARY T VISIT CARE 25 CENTER [facility] [place] [address] HOSPITAL INPATIENT [facility] OFFICE [address] [place] [address] HOSPITAL T VISIT [facility] 40 [facility] [address] OFFICE 97313 [facility] 9 9 TAHIR III, T VISIT MED CTR JORDAN 10 MINUTES OFFICE 29675 [facility] 9 9 TAHIR VALENZUELA G T VISIT MED CTR 15 [facility] 9 [facility] MEDICALCE NTER OFFICE [address] [place] [address] HOSPITAL T VISIT [facility] 25 [facility] [address] MEDICALCE NTER OFFICE [address] ST SITA OUTPATIEN 9 9 TAHIR DILLON T VISIT MED CTR J [address] SITA OUTPATIEN 9 9 TAHIR DILLON T VISIT MED CTR J [address]ES [address] [facility] 9 9 ARMANDO HARO T VISIT 15 PHYSICIAN MINUTES S [facility] - 9 9 [facility] T OFFICE 81604 ROBERT JONES OUTPATIEN 9 9 M L M L T NEW 30 MINUTES OFFICE 92352 [facility] 8 8 M L M L T VISIT [address]ES [address] [facility] 8 8 [facility] T VISIT 5 MINUTES PHYSICIAN S FOR WOMEN OFFICE 08142 MILEY ALICEA 8 8 PRIMARY MARIO P T VISIT CARE 25 CENTERINC MINUTES OFFICE 76702 [facility] VIS[facility] URGENT 15 CARE MINUTES EMERGENCY 42612 EMERGENCY MICAH, 8 8 [facility] T VISIT [facility] HIGH/URGE [place] NT SEVERITY OFFICE 99392 [facility] 8 8 POINT Y SANCHEZ T VISIT FAMILY V 10 CARE, MINUTES INC. OFFICE 14712 SANDY HOOK ADAL [facility] 8 8 TRACE KULWANT A T VISIT GASTROENT 15 EROLOGY MINUTES OFFICE 83750 [facility]OOK [facility] 8 8 TRACE KULW[place] A T VISIT GASTROENT 15 EROLOGY MINUTES OFFICE 63216 LULU WILKERSON OUTMIHAELA 8 8 PRIMARY SANIA E T VISIT CARE 25 CENTERINC MINUTES OFFICE 37213 LULU CO MILEY CANTU 8 8 PRIMARY MARIO Keyes T VISIT [address] [facility] 8 8 [facility] 47276 [facility] 8 8 POINT SANIA Abreu VISIT FAMILY 15 [facility].
--- OUTSIDE RECORDS SUMMARY | 2017-04-13 07:43 | External Medical Summary Rpt | CCD ---
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 DEFINITIV E EA ISOL CUL BACT 34441 [facility] ANAEROBIC 9 [facility] ADDL METHS DEFINITIV E EA ISOL SUSCEPTIB 78601 [facility] LTY STDY 9 [facility] ANTIMICRB IAL MICRO/AGA R DILUTJ SMR PRIM 20705 [facility] SRC 9 [facility] [employer] [facility] GRAM/GIEM SA STAIN BCT FUNGI/T[place] PREG 09244 BRIGIDA FIERRO, UTERUS 9 [facility] BENJY W REAL TIME I F/U TRNSABDL ASSOC PER [employer] NEURAXIAL [address] ST LAI, LABOR 9 TAHIR IVEY F ANALG/ANE MED CTR S PLND VAGINAL DELIVERY 59116 BRIGIDA FIERRO, [id number] 9 [facility] BENJY W AL I PROFILE W/O ASSOC NON[employer] S TESTING OTHER 7534 [facility] [address] [place] [address] MONITORIN [facility] G OTHER 7359 [facility] MANUALLY [address] [place] [address] ASSISTED [facility] DELIVERY AMNIOCENT [address]8635 ST DIAZ, ESIS 9 TAHIR Keyes DIAGNOSIC MED CTR OBSERVATI 34525 ST DIAZ, ON/INPATI 9 TAHIR Keyes ENT MED CTR HOSPITAL CARE 50 MINUTES 52387 [facility] NONSTRESS [address] [place] [address] HOSPITAL TEST [facility] IADNA 40365 [facility] NEISSERIA [address] [facility] GONORRHOE MEDICALCE MEDICALCE AE NTER NTER AMPLIFIED PROBE TQ IADNA 02931 [facility] CHLAMYDIA [address] [facility] TRACHOMAT MEDICALCE MEDICALCE IS NTER NTER AMPLIFIED PROBE TQ IADNA 96573 [facility] STREPTOCO [address] [facility] CCUS GROUP B MEDICALCE MEDICALCE AMPLIFIED NTER [place] T[place] PREG 13963 [facility] UTERUS [address] [place] [address] HOSPITAL REAL TIME [facility] F/U TRNSABDL PER FET[employer] SMR PRIM 77305 [facility] SRC 9 [facility] GRAM/GIEM SA STAIN MEDICALCE MEDICALCE BCT NTER NTER FUNGI/TIA L CULTURE 66942 [facility] TYPING [address] [facility] NUCLEIC ACID MEDICALCE MEDICALCE PROBE DIR NTER NTER EA ORGANSM CUL BACT 01911 [facility] XCPT 9 [facility] URINE BLOOD/STO MEDICALCE MEDICALCE OL NTER NTER AEROBIC ISOL COLLECTIO 62347 [facility] N VENOUS [address] [facility] BLOOD VENIPUNCT MEDICALCE [place]ICAL[place] [address] BOHME, BARTHOLIN 9 TAHIR WILMA S [facility] J ABSCESS GLUCOSE 01450 [facility] POST [address] [facility] GLUCOSE DOSE MEDICALCE MEDICALCE NTER NTER BLOOD 78144 [facility] COUNT [address] [facility] COMPLETE AUTO&AUTO MEDICALCE MEDICALCE DIFRNTL NTER NTER WBC OPHTH 29670 [place], MEDICAL 9 VISION EVA A XM&EVAL COMPRHNSV ESTAB PT 1/> US PREG 85570 GREATER L[facility]U, UTERUS 9 [facility] AR[facility] F W/DETAIL I WILFRED 1ST ASSOC [employer] CYTP C/V 09133 [facility] AUTO THIN 8 [facility] LYR PREPJ SCR MNL RESCR PHYS IADNA 30958 [facility] CHLAMYDIA 8 [facility] TRACHOMAT IS AMPLIFIED PROBE TQ IADNA 50256 [facility] NEISSERIA 8 [facility] GONORRHOE AE AMPLIFIED PROBE TQ MOLECULAR 21541 [facility] DX AMP 8 RUY REDMOND [facility] 1ST 2 SEQ MOLECULAR 96486 [facility] QUEST DAVIS [address] [facility] INTERPRET ATION & REPORT MUTATION 55801 [facility] ID 8 RUY REDMOND ENZYMATIC [facility] LIG/PRIME R XTN 1 SGM EA MOLEC 39701 [facility] DAVIS ISOL/XTRJ 8 RUY REDMOND HP NUCLEIC [facility] ACID EA TYPE MOLECULAR 78548 [facility] DAVIS DX AMP 8 RUY REDMOND [facility] EA ADDL SEQ MOLEC 77083 [facility] DAVIS SEP&ID HI 8 RUY REDMOND RESOLU TQ [facility] [place] PRE[place] [address] LULU CO MEESE, JYOTIOLIN 8 PRIMARY MARIO P S [facility] ABSCESS CENTERINC SMR PRIM 37932 [facility] SRC 8 [facility] [employer] [facility] GRAM/GIEM SA STAIN BCT FUNGI/TIA L CUL BACT 90343 [facility] ANAEROBIC 8 [facility] ADDL METHS DEFINITIV E EA ISOL CUL BACT 29348 [facility] XCPT 8 [place] [facility] URINE BLOOD/STO OL AEROBIC ISOL CULTURE 98873 [facility] BACTERIAL 8 [facility] ANY SOURCE ANAEROBIC ISO&ID RADEX HIP 60127 RADIOLOGY LAIB, 8 HENNY H UNILATERA ASSOCIATE L S PSC COMPLETE MINIMUM 2 VIEWS SMPL 13339 EMERGENCY MICAH, REPAIR 8 CARE SHERI D SCALP/NEC PHYS K/AX/FERNANDEZ [facility] T/TRUNK [place] 2.6-7.5CM AMB A0422 [employer] OXYGEN&O2 8 CO FIRE CO FIRE SUPPLIES PROTECTIO PROTECTIO LIFE N DIST #1 N DIST #1 SUSTAININ G SITUATION GROUND A0425 [employer] MILEAGE 8 CO FIRE CO FIRE PER PROTECTIO PROTECTIO STATUTE N DIST #1 N DIST #1 MILE AMBULANCE A0429 [employer] SERVICE 8 CO FIRE CO FIRE BLS PROTECTIO PROTECTIO EMERGENCY N DIST #1 N DIST #1 TRANSPORT CULTURE 74381 GILDARDOWHELDER MEADOWVIE BACTERIAL 8 W [facility] MED[facility] VE COLONY CENTER CENTER COUNT URINE URNLS DIP 15174 MEADOWHELDER MEADOWVIE 8 W W STICK/TAB [facility] MEDICAL REAGENT CENTER [place] [id number] [facility] NON-IMMUN 8 [facility] OLOGIC OTH/THN CYTOPATHI C Encounters Encounter Start End Date Code Location Performer Type Date EMERGENCY 99065 [facility] 7 7 EMERGENCY DEPARTMEN T VISIT PHYSICIAN HIGH/URGE S NT SEVERITY OFFICE 86116 [facility] HERRERAE [facility] 7 7 FAMILY T VISIT HEALTH 15 CTR MINUTES HOSPITAL - 7 [facility] 47158 [facility] 7 7 TAHIR ION NEW/ESTAB PHYSICIAN PATIENT S 60 MIN [facility] 7 [facility] RAHEL - 7 7 [facility] OUTPATIEN [facility] T EMERGENCY 83500 RAHEL 7 7 MEM [facility] DEPARTMEN INC T VISIT LOW/MODER SEVERITY HOSPITAL RAHEL - 7 7 [facility] OUTPATIEN [facility] T OFFICE 88838 RAHEL TRENT 7 7 MEM HOS[facility] T VISIT 5 INC MINUTES EMERGENCY 82717 DANDRE CHOE DEPT 7 7 PHYSICIAN VISIT S, PLLC HIGH SEVERITY& THREAT [facility] RAHEL - 7 7 MEM [facility] OUTPATIEN INC T EMERGENCY 30331 RAHEL 7 7 MEM [facility] DEPARTMEN INC T VISIT LOW/MODER SEVERITY HOSPITAL RAHEL - 7 7 [facility] OUTPATIEN INC T EMERGENCY 18492 RAHEL 7 7 MEM HOS[facility] DEPARTMEN INC T VISIT MODERATE SEVERITY EMERGENCY 19666 AMBAR ALVES 7 7 EMERGENCY DEPARTMEN T VISIT PHYSICIAN HIGH/URGE S NT SEVERITY EMERGENCY 75024 DANDRE CHOE 6 6 PHYSICIAN DEPARTMEN S, PLLC T VISIT HIGH/URGE NT SEVERITY EMERGENCY 66941 RAHEL 6 6 MEM [facility] DEPARTMEN INC T VISIT LOW/MODER SEVERITY HOSPITAL RAHEL - 6 6 [facility] OUTPATIEN INC T OFFICE 75806 LULU MOHAMUD OUTPATIEN 6 6 FAMILY T VISIT HEALTH 15 CTR MINUTES OFFICE 03571 COLD OUTPATIEN 6 6 SPRING T NEW 45 URGENT MINUTES CARE EMERGENCY 14359 AMBAR STRATTON DEPT 6 6 EMERGENCY JULIO CESAR VISIT HIGH PHYSICIAN SEVERITY& S THREAT [facility] EMERGENCY 74166 DANDRE CARMONA 5 5 PHYSICIAN DEPARTMEN S, PLLC T VISIT MODERATE SEVERITY HOSPITAL RAHEL - 5 5 MEM [facility] OUTPATIEN INC T HOSPITAL RAHEL - 5 5 [facility] OUTPATIEN INC T EMERGENCY 01220 DANDRE PALAFOX JR 5 5 PHYSICIAN JAM DEPARTMEN S, PLLC T VISIT MODERATE SEVERITY HOSPITAL ARHEL - 5 5 MEM HOS[facility] OUTPATIEN INC T OFFICE 99574 [facility]QUE OUTPATIEN 5 5 PHYSICIAN JACKELYN T VISIT S GROUP 15 MINUTES HOSPITAL RAHEL - 5 5 MEM HOS[facility] OUTPATIEN INC T EMERGENCY 60132 DANDRE Galvez 5 5 PHYSICIAN DEPARTMEN S, PLLC T VISIT MODERATE SEVERITY PERIODIC 79820 [facility] PREVENTIV 5 5 PHYSICIAN E MED EST S GROUP PATIENT 18-39 YRS HOSPITAL RAHEL - 5 5 [facility] OUTPATIEN INC T OFFICE 16782 [facility] OUTPATIEN 5 5 PHYSICIAN JACKELYN T NEW 45 S GROUP MINUTES EMERGENCY 35796 DANDRE CHOE 5 5 PHYSICIAN PALOMA DEPARTMEN S, PLLC T VISIT HIGH/URGE NT SEVERITY OFFICE 69994 LULU BOWEN OUTPATIEN 5 5 PRIMARY T VISIT CARE 15 CENTER MINUTES OFFICE 25378 PETTEY PETTEY OUTPATIEN 4 4 JAM JAM T NEW 30 MINUTES OFFICE 09764 MARIAH LEMUS OUTPATIEN 3 3 ADA ADA T VISIT 25 MINUTES HOSPITAL MARLENY - 3 3 W OUTPATIEN REGIONAL T MEDICAL OFFICE 92098 RICHARD RAMOS PEPE OUTPATIEN 3 3 T VISIT 10 MINUTES OFFICE 87865 ABEL POWELLBER OUTPATIEN 3 3 Y ARIA Y ARIA T VISIT 15 MINUTES OFFICE 85030 LULU CARTER OUTPATIEN 3 3 PRIMARY THO T VISIT CARE 15 CENTER MINUTES EMERGENCY 47591 MARLENY 3 3 W DEPARTMEN REGIONAL T VISIT MEDICAL LIMITED/M INOR PROB EMERGENCY 32772 MALAGON KER MALAGON KER 3 3 DEPARTMEN T VISIT MODERATE SEVERITY HOSPITAL MARLENY - 3 3 W OUTPATIEN REGIONAL T MEDICAL OFFICE 26014 JAGJIT JAGJIT OUTPATIEN 3 3 JAM JAM T VISIT 25 MINUTES OFFICE 40417 LULU CARTER OUTPATIEN 3 3 PRIMARY THO T VISIT CARE 15 CENTER MINUTES HOSPITAL MARLENY - 3 3 W OUTPATIEN REGIONAL T MEDICAL EMERGENCY 24673 MEADOWVIE 3 3 W DEPARTMEN REGIONAL T VISIT MEDICAL MODERATE SEVERITY OFFICE 08972 RICHARD CANTU OUTPATIEN 3 3 T NEW 30 MINUTES OFFICE 72055 JAGJIT OUTPATIEN 3 3 JAM T VISIT 15 MINUTES OFFICE 87686 LULU DANIELSON OUTPATIEN 3 3 PRIMARY JAM T VISIT CARE 25 CENTER MINUTES OFFICE 90482 [facility] JOELLITZEL OUTPATIEN 3 3 [facility] KENYA T NEW 30 ORTHOPAE MINUTES EMERGENCY 21343 EMERGENCY CATHERINE HO 3 3 [facility] T VISIT [facility] HIGH/URGE NT [facility] RAHEL - 2 2 MEM HOSP OUTPATIEN [facility] T OFFICE 07772 [facility] OUT[facility] 2 2 HEALTH BRENNA T VISIT CLINIC OF 15 JAMESON MINUTES OFFICE 54887 [facility] OUT[facility] 2 2 HEALTH BRENNA T NEW 30 CLINIC OF MINUTES JAMESON EMERGENCY 72588 KAROL MALAGON [facility] DEPT 2 2 EMERGENCY VISIT SERVICES HIGH SEVERITY& THREAT FUNCJ PERIODIC 78569 LULU ZAVALA PREVENTIV 2 2 PRIMARY E MED EST CARE PATIENT CENTER 18-39 YRS OFFICE 91143 AWOSIKA AWOSIKA OUTPATIEN 2 2 TABITHA TABITHA T NEW 30 MINUTES HOSPITAL [facility]LEN[facility] 34275 [facility] OUTPATIEN 1 1 TRACE DON T VISIT GASTROEN 25 MINUTES HOSPITAL GILDARDOWVIE - 1 1 W [facility] T MEDICAL EMERGENCY 49550 KAROL LOFTONPARKER 1 1 EMERGENCY JESE DEPARTMEN SERVICES T VISIT HIGH/URGE NT SEVERITY OFFICE 91924 [facility] 1 1 TRACE DON ION GASTROEN NEW/ESTAB PATIENT 40 MIN EMERGENCY 12537 KAROL NEWUT KER 1 1 EMERGENCY DEPARTMEN SERVICES T VISIT HIGH/URGE NT SEVERITY OFFICE 81278 LULU CO NEUS SHOBHA OUTPATIEN 1 1 PRIMARY T VISIT CARE 15 CENTER MINUTES EMERGENCY 91602 KAROL SERRATO DEPT 1 1 EMERGENCY JESE VISIT SERVICES HIGH SEVERITY& THREAT FUNCJ OFFICE 19527 LULU CO NEUS SHOBHA OUTPATIEN 1 1 PRIMARY T VISIT CARE 25 CENTER [facility] [place] [address] HOSPITAL INPATIENT [facility] OFFICE [address]7588 [place] [address] HOSPITAL T VISIT [facility] 40 [facility] [address] OFFICE 76024 [facility] 9 9 TAHIR III, T VISIT MED CTR JORDAN 10 MINUTES OFFICE 35046 [facility] 9 9 TAHIR VALENZUELA G T VISIT MED CTR 15 [facility] [place] [facility] 9 [facility] MEDICALCE NTER OFFICE 56050 [place] [address] HOSPITAL T VISIT [facility] 25 [facility] [address] MEDICALCE NTER OFFICE [address] ST SITA OUTPATIEN 9 9 TAHIR DILLON T VISIT MED CTR J [address] SITA OUTPATIEN 9 9 TAHIR DILLON T VISIT MED CTR J [address]ES [address] [facility] 9 ARMANDO HARO T VISIT 15 PHYSICIAN MINUTES S [facility] - 9 9 [facility] T OFFICE 32850 ROBERT JONES OUTPATIEN 9 9 M L M L T NEW 30 MINUTES OFFICE 15996 [facility] JONES [facility] 8 8 M L M L T VISIT 15 MINUTES OFFICE 05694 [facility] 8 8 [facility] T VISIT 5 MINUTES PHYSICIAN S FOR WOMEN OFFICE 69335 MILEY ALICEA 8 8 PRIMARY MARIO P T VISIT CARE 25 CENTERINC MINUTES OFFICE 16357 [facility] 8 8 [facility] VIS[facility] URGENT 15 CARE MINUTES EMERGENCY 41133 EMERGENCY MICAH, 8 8 CARE [facility] PH[facility] T VISIT [facility] NT SEVERITY OFFICE 94[address] [facility] 8 8 POINT Y SANCHEZ T VISIT FAMILY V 10 CARE, MINUTES INC. OFFICE 18039 [place] [facility] [facility] 8 8 TRACE KULW[place] A T VISIT GASTROENT 15 EROLOGY MINUTES OFFICE 10222 [place] [facility] [facility] 8 8 TRACE [place] A T VISIT GASTROENT 15 EROLOGY MINUTES OFFICE 65082 LULU WILKERSON OUTMIHAELA 8 8 PRIMARY SANIA E T VISIT CARE 25 CENTERINC MINUTES OFFICE 29101 LULU CO MILEY CANTU 8 8 PRIMARY MARIO Keyes T VISIT [address] [facility] 8 8 W [facility] OFFICE 18142 [facility] Milligan 8 8 POINT SANIA Abreu VISIT FAMILY 15 [facility].
--- OUTSIDE RECORDS SUMMARY | 2017-04-13 07:45 | External Medical Summary Rpt ---
Author Author DRE Crowley, [employer] Organization [employer] Address Unknown Phone Unavailable Results CBC W Auto Differential panel in Blood Observa Value Referen Units Interpr Notes Date tion ce etation Range Basophils 0 - 0.2 K/MM3 Normal No Apr 06 informati 2016 3:20 [#/volume on in PM ] in source Blood by data Automated count Basophils 0.1 - 2.0 % Normal No Apr 06 /100 informati 2016 3:20 leukocyte on in PM s in source Blood by data Automated count Eosinophi 0.0 - 0.4 K/mm3 Normal No Apr 06 ls informati 2016 3:20 [#/volume on in PM ] in source Blood by data Automated count Eosinophi 0.1 - % Normal No Apr 06 ls/100 12.0 informati 2016 3:20 leukocyte on in PM s in source Blood by data Automated count Granulocy 1.8 - 7.8 K/mm3 Normal No Apr 06 gurinder informati 2016 3:20 [#/volume on in PM ] in source Blood by data Automated count Granulocy 37.0 - % Normal No Apr 06 gurinder/100 80.0 informati 2016 3:20 leukocyte on in PM s in source Blood by data Automated count Hematocri 37.0 - % High No Apr 06 t [Volume 47.0 informati 2016 3:20 on in PM Fraction] source of Blood data Hemoglobi 12.2 - g/dL Normal No Apr 06 n 16.2 informati 2016 3:20 [Mass/vol on in PM ume] in source Blood data Lymphocyt 0.7 - 4.5 K/mm3 Normal No Apr 06 es informati 2016 3:20 [#/volume on in PM ] in source Unspecifi data ed specimen by Automated count Lymphocyt 10 - 50.0 % Normal No Apr 06 es informati 2016 3:20 [#/volume on in PM ] in source Unspecifi data ed specimen by Automated count Erythrocy 27 - 31.2 pg Normal No Apr 06 te mean informati 2016 3:20 corpuscul on in PM ar source hemoglobi data n [Entitic mass] Erythrocy 31.8 - g/dl Normal No Apr 06 te mean 35.4 inform2016 3:20 corpuscul on in PM ar source hemoglobi data n concentra tion [Mass/vol ume] by Automated count Erythrocy 82.2 - fl Normal No Apr 6 te mean 97.8 informati 2016 3:20 corpuscul on in PM ar volume source [Entitic data volume] by Automated count Monocytes 0.1 - 1.0 K/mm3 Normal No Apr 06 inform2016 3:20 [#/volume on in PM ] in source Blood by data Automated count Monocytes 1.7 - 9.3 % Normal No Apr 6 /100 informati 2016 3:20 leukocyte on in PM s in source Blood by data Automated count Platelet 7.4 - fl Normal No Apr 06 mean 10.4 informati 2016 3:20 volume on in PM [Entitic source volume] data in Blood by Automated count Platelets 142 - 424 K/mm3 Normal No Apr 06 inform2016 3:20 [#/volume on in PM ] in source Blood data Erythrocy 4.2 - 5.4 M/mm3 Normal No Apr 6 gurinder informati 2016 3:20 [#/volume on in PM ] in source Amniotic data fluid Erythrocy 11.5 - % Normal No Apr 6 te 17.5 informati 2016 3:20 distribut on in PM ion width source [Entitic data volume] by Automated count Leukocyte 4.8 - K/MM3 Normal No Apr 6 s 10.8 informati 2016 3:20 [#/volume on in PM ] in source Blood data U [facility] Observa Value Referen Units Interpr Notes Date tion ce etation Range Codeine Not No No No No Dec 15 Detecte informa informa informa informa 2016 (cutoff d tion in tion in tion in tion in 2:59 PM 40 source source source source ng/mL)- data data data data [facility] Morphin Not No No No No Dec 15 e Detecte informa informa informa informa 2016 (cutoff d tion in tion in tion in tion in 2:59 PM 20 source source source source ng/mL)- data data data data [facility] 6-acety Not No No No No Dec 15 lmorphi Detecte informa informa informa informa 2017 ne d tion in tion in tion in tion in 2:59 PM (cutoff source source source source 20 data data data data ng/mL)- [facility] Oxycodo Present No No No No Dec 15 ne informa informa informa informa 2017 (cutoff tion in tion in tion in tion in 2:59 PM 40 source source source source ng/mL)- data data data data [facility] Noroxyc Present No No No No Dec 15 odone informa informa informa informa 2017 (cutoff tion in tion in tion in tion in 2:59 PM 100 source source source source ng/mL)- data data data data [facility] Oxymorp Not No No No No Dec 15 samir Detecte informa informa informa informa 2016 (cutoff d tion in tion in tion in tion in 2:59 PM 40 source source source source ng/mL)- data data data data [facility] Noroxym Not No No No No Dec 15 orphone Detecte informa informa informa informa 2016 d tion in tion in tion in tion in 2:59 PM (cutoff source source source source 100 data data data data ng/mL)- [facility] Hydroco Not No No No No Dec 15 done Detecte informa informa informa informa 2016 (cutoff d tion in tion in tion in tion in 2:59 PM 40 source source source source ng/mL)- data data data data [facility] Norhydr Not No No No No Dec 15 ocodone Detecte informa informa informa informa 2016 d tion in tion in tion in tion in 2:59 PM (cutoff source source source source 100 data data data data ng/mL)- [facility] Hydromo Not No No No No Dec 15 rphone Detecte informa informa informa informa 2016 (cutoff d tion in tion in tion in tion in 2:59 PM 40 source source source source ng/mL)- data data data data [facility] Bupreno Not No No No No Dec 15 rphine Detecte informa informa informa informa 2017 (cutoff d tion in tion in tion in tion in 2:59 PM 5 source source source source ng/mL)- data data data data [facility] Norbupr Not No No No No Rohit 16 enorphi Detecte informa informa informa informa 2017 ne d tion in tion in tion in tion in 2:59 PM (cutoff source source source source 20 data data data data ng/mL)- [facility] Fentany Not No No No No Rohit 16 l Detecte informa informa informa informa 2017 (cutoff d tion in tion in tion in tion in 2:59 PM 2 source source source source ng/mL)- data data data data [facility] Norfent Not No No No No Rohit 16 anyl Detecte informa informa informa informa 2017 (cutoff d tion in tion in tion in tion in 2:59 PM 2 source source source source ng/mL)- data data data data [facility] Meperid Not No No No No Rohit 16 ine Detecte informa informa informa informa 2017 metabol d tion in tion in tion in tion in 2:59 PM ite source source source source (cutoff data data data data 50 ng/mL) Tapenta Not No No No No Rohit 16 dol Detecte informa informa informa informa 2016 (cutoff d tion in tion in tion in tion in 2:59 PM 100 source source source source ng/mL)- data data data data [facility] Tapenta Not No No No No Rohit 16 dol-o-S Detecte informa informa informa informa 2016 ulf d tion in tion in tion in tion in 2:59 PM (cutoff source source source source 200 data data data data ng/mL)- [facility] Methado Not No No No No Nov 16 ne Detecte informa informa informa informa 2017 (cutoff d tion in tion in tion in tion in 2:59 PM 150 source source source source ng/mL)- data data data data [facility] Propoxy Not No No No No Rohit 16 phene Detecte informa informa informa informa 2017 (cutoff d tion in tion in tion in tion in 2:59 PM 300 source source source source ng/mL)- data data data data [facility] Tramado Not No No No No Rohit 16 l Detecte informa informa informa informa 2017 (cutoff d tion in tion in tion in tion in 2:59 PM 200 source source source source ng/mL)- data data data data [facility] Ampheta Not No No No No Rohit 16 mine Detecte informa informa informa informa 2017 (cutoff d tion in tion in tion in tion in 2:59 PM 100 source source source source ng/mL)- data data data data [facility] Methamp Not No No No No Rohit 16 hetamin Detecte informa informa informa informa 2017 e d tion in tion in tion in tion in 2:59 PM (cutoff source source source source 400 data data data data ng/mL)- [facility] MDMA- Not No No No No Rohit 16 Ecstasy Detecte informa informa informa informa 2017 d tion in tion in tion in tion in 2:59 PM (cutoff source source source source 200 data data data data ng/mL)- [facility] MDA Not No No No No Rohit 16 (cutoff Detecte informa informa informa informa 2017 200 d tion in tion in tion in tion in 2:59 PM ng/mL)- source source source source [facility] data data data data MDEA- Not No No No No Rohit 16 Andie Detecte informa informa informa informa 2016 (cutoff d tion in tion in tion in tion in 2:59 PM 200 source source source source ng/mL)- data data data data [facility] Methylp Not No No No No Rohit 16 henidat Detecte informa informa informa informa 2016 e d tion in tion in tion in tion in 2:59 PM (cutoff source source source source 100 data data data data ng/mL)- [facility] Phenter Not No No No No Rohit 16 mine Detecte informa informa informa informa 2016 (cutoff d tion in tion in tion in tion in 2:59 PM 100 source source source source ng/mL)- data data data data [facility] Benzoyl Not No No No No Rohit 16 ecgonin Detecte informa informa informa informa 2017 e d tion in tion in tion in tion in 2:59 PM (cutoff source source source source 150 data data data data ng/mL)- [facility] Alprazo Not No No No No Rohit 16 arboleda Detecte informa informa informa informa 2017 (cutoff d tion in tion in tion in tion in 2:59 PM 40 source source source source ng/mL)- data data data data [facility] Alpha-O Not No No No No Nov 16 H-Alpra Detecte informa informa informa informa 2017 zolam d tion in tion in tion in tion in 2:59 PM (cutoff source source source source 20 data data data data ng/mL)- [facility] Clonaze Not No No No No Nov 16 mikayla Detecte informa informa informa informa 2017 (cutoff d tion in tion in tion in tion in 2:59 PM 20 source source source source ng/mL)- data data data data [facility] 7-Amino Not No No No No Nov 16 clonaze Detecte informa informa informa informa 2017 mikayla d tion in tion in tion in tion in 2:59 PM (cutoff source source source source 40 data data data data ng/mL)- [facility] Diazepa Not No No No No Nov 16 m Detecte informa informa informa informa 2017 (cutoff d tion in tion in tion in tion in 2:59 PM 50 source source source source ng/mL)- data data data data [facility] Nordiaz Not No No No No Nov 16 epam Detecte informa informa informa informa 2017 (cutoff d tion in tion in tion in tion in 2:59 PM 50 source source source source ng/mL)- data data data data [facility] Oxazepa Not No No No No Nov 16 m Detecte informa informa informa informa 2017 (cutoff d tion in tion in tion in tion in 2:59 PM 50 source source source source ng/mL)- data data data data [facility] Temazep Not No No No No Rohit 16 am Detecte informa informa informa informa 2017 (cutoff d tion in tion in tion in tion in 2:59 PM 50 source source source source ng/mL)- data data data data [facility] Lorazep Not No No No No Rohit 16 am Detecte informa informa informa informa 2017 (cutoff d tion in tion in tion in tion in 2:59 PM 60 source source source source ng/mL)- data data data data [facility] Midazol Not No No No No Dec 15 am Detecte informa informa informa informa 2017 (cutoff d tion in tion in tion in tion in 2:59 PM 20 source source source source ng/mL)- data data data data [facility] Zolpide Not No No No No Dec 15 m Detecte informa informa informa informa 2017 (cutoff d tion in tion in tion in tion in 2:59 PM 20 source source source source ng/mL)- data data data data [facility] Barbitu Not No No No No Dec 15 rates Detecte informa informa informa informa 2017 (cutoff d tion in tion in tion in tion in 2:59 PM 200 source source source source ng/mL)- data data data data [facility] Creatin 37.5 20.0 - mg/dL No No Dec 15 ine, 400.0 informa informa 2017 Urine-A tion in tion in 2:59 PM [facility] source source data data Ethyl Not No No No No Dec 15 Glucuro Detecte informa informa informa informa 2017 nide d tion in tion in tion in tion in 2:59 PM (cutoff source source source source 500 data data data data ng/mL)- [facility] Marijua Not No No No No Dec 15 na Detecte informa informa informa informa 2017 Metabol d tion in tion in tion in tion in 2:59 PM ite source source source source (cutoff data data data data 20 ng/mL)- A PCP Not No No No No Dec 15 (cutoff Detecte informa informa informa informa 2017 25 d tion in tion in tion in tion in 2:59 PM ng/mL)- source source source source [facility] data data data data Carisop Not No No No \.br\Dec 15 rodol Detecte informa informa informa e 2017 (cut-of d tion in tion in tion in carisop 2:59 PM f 100 source source source rodol ng/mL)- data data data immunoa [facility] ssay has cross-r eactivi ty to carisop rodol\. br\and meproba mate. Pain See No No No Methodo Dec 15 Managem Below informa informa informa logy: 2017 ent tion in tion in tion in Qualita 2:59 PM Drug source source source tive Panel-A data data data Enzyme [facility] Immunoa ssay and Qualita tive Liquid\ .br\Chr omatogr aphy-Ti me of Flight- Mass Spectro metry, Quantit ative\. br\Spec trophot ometry\ .br\The absence of expecte d drug(s) and/or drug metabol ite(s) may\.br \indica te non-com pliance , inappro priate timing of specime n\.br\c ollecti on relativ e to drug adminis tration , poor drug absorpt ion,\.b r\dilut ed/adul terated urine, or limitat ions of testing . The\.br \concen tration must be greater than or equal to the cutoff to be\.br\ reporte d as present . If specifi c drug concent rations are\.br \requir ed, contact the laborat ory within two weeks of specime n\.br\c ollecti on to request quantif ication by a second analyti conrad\.br \techni que. Interpr etive questio ns should be directe d to the\.br \labora tory.\. br\Resu lts based on immunoa ssay detecti on that do not match clinica l\.br\e xpectat ions should be\.br\ interpr eted with caution . Confirm atory testing by mass\.b r\spect rometry for immunoa ssay-ba sed results is availab le, if\.br\ ordered within two weeks of specime n collect ion. Additio nal\.br \charge s apply.\ .br\For medical purpose s only; not valid for forensi c use.\.b r\This test was develop ed and its perform ance charact eristic s\.br\d [facility]in ed [facility]. The U.S. Food and Drug\.b r\Admin istrati on has not approve d or cleared this test; however , FDA\.br \cleara nce or approva l is not current ly require d for clinica l use.\.b r\The results are not intende d to be used as the sole means for\.br \clinic al diagnos is or patient managem ent decisio ns. EER See No No No Access Dec 15 Pain Note informa informa informa [facility] 2017 Mgt tion in tion in tion in Enhance 2:59 PM Drug source source source d Panel, data data data Report High using Res/JIL either T U link below:\ .br\\.b r\-Dire ct access: https:/ /[employer]/?t= [id number]\ .br\\.b r\-Ente r Usernam e, Passwor d: https:/ /[email or web address]\.br \ Usernam e: [id number]\ .br\ Passwor d: [id number] \.br\Pe rformed by RIRI guerra,\ .br\[address] [facility] [place] [address] \. br\www. [employer], Carl Wesley MD - Lab. Directo r MRI CERVICAL SPINE WO CONTRAST Observa Value Referen Units Interpr Notes Date tion ce etation Range \.br\MR No No No No Oct 26 I informa informa informa informa 2017 CERVICA tion in tion in tion in tion in 9:15 AM L SPINE source source source source WO data data data data CONTRAS T 10/27/19 17 9:15 AM\.br\ \.br\HI STORY: M54.2-C ervical anmol-ICD -10-CM. \.br\\. br\\.br \\.br\C OMPARE: None availab le\.br\ \.br\FI NDINGS: \.br\\. br\Nadia ow signal normal and the osseous structu res. Cerebel lar tonsils \.br\no rmally\ .br\pos itioned . Cord signal and caliber normal\ .br\\.b r\C2-3 is normal\ .br\\.b r\At C3-4 there is LEFT foramin al protrus ion with associa jaylyn spur with mild\.b r\LEFT\ .br\for aminal narrowi ng. No central stenosi s or RIGHT foramin al narrowi ng\.br\ \.br\At C4-5 there is a LEFT foramin al protrus ion with associa jaylyn spur again\. br\with \.br\mi ld LEFT foramin al narrowi ng. No central stenosi s or RIGHT foramin al\.br\ narrowi ng\.br\ \.br\At C5-6 broad-b ased spondyl itic change in the LEFT paracen tral and\.br \forami nal\.br \region seen with moderat e LEFT C6 foramin al narrowi ng. The RIGHT foramen is\.br\ widely patent. 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 Detaile d descrip tion of each anatomi c level given above\. br\ XR SHOULDER RIGHT 4 VIEWS Observa Value Referen Units Interpr Notes Date tion ce etation Range XR No No No No Jul 20 SHOULDE informa informa informa informa 2017 R RIGHT tion in tion in tion in tion in 12:46 4 source source source source PM VIEWS data data data data dated 07/20/19 17\.br\ \.br\CO MPARISO N: 11/24/19 13\.br\ \.br\HI STORY: Right shoulde r strain, pain\.b r\\.br\ IMPRESS ION:\.b r\\.br\ No signifi cant osseous , joint, or soft tissue abnorma lity identif ied.\.b r\ CT ABDOMEN PELVIS W CONTRAST Observa Value Referen Units Interpr Notes Date tion ce etation Range CT No No No No Apr 16 ABDOMEN informa informa informa informa 2016 PELVIS tion in tion in tion in tion in 4:58 PM W source source source source CONTRAS data data data data T 016 4:58 PM\.br\ \.br\HI STORY: Right-s ided abdomin al pain, nausea. -ABDOMI NAL PAIN\.b r\\.br\ TECHNIQ UE: Routine CT abdomen and pelvis with IV contras t. 100 mL\.br\ Isovue- 370 IV.\.br \\.br\\ .br\COM PARISON : July 03, 2006\.b r\\.br\ FINDING S:\.br\ \.br\Th ere is wall thicken ing associa jaylyn with the termina l ileum, distal 7-8 cm\.br\ segment . There are small adjacen t mesente mandy lymph nodes. There is no bowel\. br\dila tation or free air. The appendi x is normal. No evidenc e of fistula or\.br\ sinus\. br\trac t. No abscess .\.br\\ .br\Pos tcholec ystecto my. Liver, spleen, pancrea s, adrenal glands, and kidneys \.br\ar e\.br\n ormal. No abdomin al or pelvic mass, fluid collect ion, or lymphad enopath y.\.br\ \.br\Yarelis ng bases are clear. There is no acute osseous abnorma lity.\. br\\.br \IMPRES BIA:\. br\\.br \1. Termina l ileitis , suggest ing Crohn's disease . There is no other\. br\sign ificant \.br\ab normali ty identif ied.\.b r\ Lipase Observa Value Referen Units Interpr Notes Date tion ce etation Range Lipase 29 13 - 60 IU/L No No Apr 16 Lvl informa informa 2015 tion in tion in 3:23 PM source source data data UA Observa Value Referen Units Interpr Notes Date tion ce etation Range UA Yellow No No No No Apr 16 Color informa informa informa informa 2015 tion in tion in tion in tion in 3:11 PM source source source source data data data data UA Clear Clear No No No Apr 16 Appear informa informa informa 2015 tion in tion in tion in 3:11 PM source source source data data data UA Negativ Negativ No No No Apr 16 Glucose e e informa informa informa 2016 tion in tion in tion in 3:11 PM source source source data data data UA Negativ Negativ No No No Apr 16 Ketones e e informa informa informa 2016 tion in tion in tion in 3:11 PM source source source data data data UA Negativ Negativ No No No Apr 16 Blood e e informa informa informa 2016 tion in tion in tion in 3:11 PM source source source data data data UA pH 6.0 5.0 - No No Referen Apr 16 8.0 informa informa ce 2016 tion in tion in range 3:11 PM source source valid data data for random specime ns only. UA Negativ Negativ No No No Apr 16 Protein e e informa informa informa 2016 tion in tion in tion in 3:11 PM source source source data data data UA 0.2 <=1 No No No Apr 16 Urobili E.U./dL E.U./dL informa informa informa 2016 nogen tion in tion in tion in 3:11 PM source source source data data data UA Negativ Negativ No No No Apr 16 Nitrite e e informa informa informa 2016 tion in tion in tion in 3:11 PM source source source data data data [facility]A Leuk Negativ Negativ No No No Apr 16 Est e e informa informa informa 2016 tion in tion in tion in 3:11 PM source source source data data data UA Spec >=1.030 1.001 - No No Referen Apr 16 Grav 1.035 informa informa ce 2016 tion in tion in range 3:11 PM source source valid data data for random specime ns only. Auto Diff Observa Value Referen Units Interpr Notes Date tion ce etation Range Neutrop 69.1 No % No No Apr 16 hils informa informa informa 2015 [#/volu tion in tion in tion in 3:04 PM me] in source source source Blood data data data by Automat ed count Lymphoc 22.3 No % No No Apr 16 ytes informa informa informa 2015 [#/volu tion in tion in tion in 3:04 PM me] in source source source Blood data data data by Automat ed count Monocyt 5.5 No % No No Oct 16 es informa informa informa 2016 [#/volu tion in tion in tion in 3:04 PM me] in source source source Blood data data data by Automat ed count Eos 2.3 No % No No Oct 16 Percent informa informa informa 2016 tion in tion in tion in 3:04 PM source source source data data data Baso 0.8 No % No No Oct 16 Percent informa informa informa 2016 tion in tion in tion in 3:04 PM source source source data data data Neut# 6.2 1.8 - x10(3)/ No No Oct 16 7.7 mcL informa informa 2016 tion in tion in 3:04 PM source source data data Lymph# 2.0 0.6 - x10(3)/ No No Oct 16 4.8 mcL informa informa 2016 tion in tion in 3:04 PM source source data data [place]# 0.5 0.0 - x10(3)/ No No Oct 16 1.3 mcL informa informa 2016 tion in tion in 3:04 PM source source data data Eos# 0.2 0.0 - x10(3)/ No No Oct 16 0.5 mcL informa informa 2016 tion in tion in 3:04 PM source source data data Baso# 0.1 0.0 - x10(3)/ No No Oct 16 0.2 mcL informa informa 2016 tion in tion in 3:04 PM source source data data CBC Observa Value Referen Units Interpr Notes Date tion ce etation Range LEUKOCY 9.0 4.0 - x10(3)/ No No Apr 16 GURINDER 11.0 mcL informa informa 2016 tion in tion in 3:04 PM source source data data Erythro 4.55 3.80 - x10(6)/ No No Apr 16 cytes 5.10 mcL informa informa 2016 [#/volu tion in tion in 3:04 PM me] in source source Blood data data by Automat ed count Hemoglo 13.7 12.0 - gm/dL No No Apr 16 bin 15.6 informa informa 2016 [Mass/v tion in tion in 3:04 PM olume] source source in data data Blood Hematoc 40.5 35.7 - % No No Apr 16 rit 45.9 informa informa 2016 [Volume tion in tion in 3:04 PM source source Fractio data data n] of Blood by Automat ed count Erythro 89.1 82.5 - fL No No Apr 16 cyte 99.8 informa informa 2016 mean tion in tion in 3:04 PM corpusc source source ular data data volume [Entiti c volume] by Automat ed count Erythro 30.1 27.0 - pg No No Apr 16 cyte 34.3 informa informa 2016 mean tion in tion in 3:04 PM corpusc source source ular data data hemoglo bin [Entiti c mass] by Automat ed count Erythro 33.8 32.1 - gm/dL No No Apr 16 cyte 35.3 informa informa 2016 mean tion in tion in 3:04 PM corpusc source source ular data data hemoglo bin concent ration [Mass/v olume] by Automat ed count Erythro 14.1 11.5 - % No No Apr 16 cyte 15.0 informa informa 2016 distrib tion in tion in 3:04 PM ution source source width data data [Ratio] by Automat ed count Platele 197 144 - x10(3)/ No No Apr 16 ts 423 mcL informa informa 2016 [#/volu tion in tion in 3:04 PM me] in source source Blood data data by Automat ed count MPV 8.1 6.8 - fL No No Apr 16 10.8 informa informa 2016 tion in tion in 3:04 PM source source data data
--- OUTSIDE RECORDS SUMMARY | 2017-04-13 07:45 | External Medical Summary Rpt | CCD ---
Demographics Preferred Language Luxembourgish Marital Status Unknown Alevism Affiliation Unknown Race Unknown Ethnic Group Unknown Author Author , DRE ERICKSON Address Unknown Phone Immunization No patient found.
--- OUTSIDE RECORDS SUMMARY | 2017-04-13 07:45 | External Medical Summary Rpt | CCD ---
Demographics Preferred Language Kyrgyz Marital Status Unknown Rastafarian Affiliation Unknown Race Unknown Ethnic Group Unknown Author Author , DRE ERICKSON Address Unknown Phone Immunization No patient found.
--- OUTSIDE RECORDS SUMMARY | 2017-04-13 07:45 | External Medical Summary Rpt ---
[...] request quantif ication by a second analyti conrda\.br \techni que. Interpr etive questio ns should [...] eristic s\.br\[facility]. The U.S. Food and Drug\.b r\Admin [...] link below:\ .br\\.b r\-Dire ct access: https:/ /[email or web address]/?t= [id number] [id number]\ .br\\.b r\-Ente r Usernam e, Passwor d: https:/ /[email or web address]\.br \ Usernam e: [id number]\ .br\ Passwor d: [id number] \.br\Pe rformed by RIRI guerra,\ .br\[address] [facility] [place] [address] \. br\www. [employer], Carl Wesley MD - Lab. Directo r [...] in 3:04 PM source source data data Garden# 0.5 0.0 - x10(3)/ No No Oct [...]
== END 2017-04-06 16:47 | disposition home or self-care (01) ==
LOC: ER 15:09
PROVIDERS: Emergency Medicine
DX: M54.12 Radiculopathy, cervical region (principal); M94.0 Chondrocostal junction syndrome [Tietze]; F17.210 Nicotine dependence, cigarettes, uncomplicated

== ENCOUNTER 2017-05-27 12:27 | Emergency (ER) | payer MEDICAID ==
[~2017-05-27] VITALS: Ht 165.1 cm; Wt 77.1 kg
[~2017-05-27 12:27] MED LIST changes: +PREDNISONE 10MG10 MG PO; +TRAMADOL50 M1 PO
[2017-05-27] MEDS ORDERED: ALPRAZOLAM0.5 M3 PO (12:36)
--- OUTSIDE RECORDS SUMMARY | 2017-05-27 12:36 | External Medical Summary Rpt | CCD ---
Demographics Preferred Language Georgian Marital Status Unknown Tenriism Affiliation Unknown Race Unknown Ethnic Group Unknown Author Author , DRE ERICKSON Address Unknown Phone Immunization No patient found.
--- OUTSIDE RECORDS SUMMARY | 2017-05-27 12:36 | External Medical Summary Rpt | CCD ---
Author Author [employer] Organization [employer] Address Unknown Phone Unavailable Purpose Continuity of Care Document - through 2016
--- OUTSIDE RECORDS SUMMARY | 2017-05-27 12:36 | External Medical Summary Rpt | CCD ---
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
--- OUTSIDE RECORDS SUMMARY | 2017-05-27 12:36 | External Medical Summary Rpt | CCD ---
Demographics Preferred Language Sami Marital Status Unknown Advent Affiliation Unknown Race Unknown Ethnic Group Unknown Author Author , DRE ERICKSON Address Unknown Phone Immunization No patient found.
--- OUTSIDE RECORDS SUMMARY | 2017-05-27 12:36 | External Medical Summary Rpt | CCD ---
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
--- OUTSIDE RECORDS SUMMARY | 2017-05-27 12:37 | External Medical Summary Rpt ---
[...] 27 - 31.2 pg Normal No Apr 6 te mean informati 2016 3:20 corpuscul on [...] - 5.4 M/mm3 Normal No Apr 6 guirnder informati 2016 3:20 [#/volume on in PM ] in source Amniotic data fluid Erythrocy 11.5 - % Normal No Apr 6 te 17.5 inform2016 3:20 distribut on in PM ion width [...] [facility] Methado Not No No No No Rohit 16 ne Detecte informa informa informa informa [...] [facility] Alpha-O Not No No No No Rohit 16 H-Alpra Detecte informa informa informa informa 2017 zolam d tion in tion in tion in tion in 2:59 PM (cutoff source source source source 20 data data data data ng/mL)- [facility] Clonaze Not No No No No Rohit 16 mikayla Detecte informa informa informa informa 2017 (cutoff d tion in tion in tion in tion in 2:59 PM 20 source source source source ng/mL)- data data data data [facility] 7-Amino Not No No No No Rohit 16 clonaze Detecte informa informa informa informa 2017 mikayla d tion in tion in tion in tion in 2:59 PM (cutoff source source source source 40 data data data data ng/mL)- [facility] Diazepa Not No No No No Rohit 16 m Detecte informa informa informa informa [...] [facility] Oxazepa Not No No No No Rohit 16 m Detecte informa informa informa informa [...] [facility] Midazol Not No No No No Rohit 16 [...] ance charact eristic s\.br\[facility]. The U.S. Food and Drug\.b r\Admin [...] link below:\ .br\\.b r\-Dire ct access: https:/ /[employer]/?t= [id number]\ .br\\.b r\-Ente r Usernam e, Passwor d: https:/ /[employer]\.br \ Usernam e: Bf4!?K\ .br\ Passwor d: yP=3?2W \.br\Pe rformed by RIRI guerra,\ .br\[address] [facility] [place] [address] \. br\www. [employer], Carl Wesley MD - Lab. Directo r [...] UA Spec >=1.030 1.001 - No No ReferApr 16 Grav 1.035 informa informa ce 2015 tion in tion in range 3:11 PM [...] No Apr 16 ytes informa informa informa 2016 [#/volu tion in [...] in 3:04 PM source source data data [place]# 0.5 0.0 - x10(3)/ No No Oct [...] LEUKOCY 9.0 4.0 - x10(3)/ No No Oct 16 GURINDER 11.0 mcL informa informa 2016 [...]
--- OUTSIDE RECORDS SUMMARY | 2017-05-27 12:37 | External Medical Summary Rpt ---
[...] ance charact eristic s\.br\[facility] The U.S. Food and Drug\.b r\Admin [...] Panel, data data data Report High using Res/JLI either T U link below:\ .br\\.b r\-Dire ct access: https:/ /[employer]/?t= [id number]\ .br\\.b r\-Ente r Usernam e, Passwor d: https:/ /[employer]\.br \ Usernam e: Bf4!?K\ .br\ Passwor d: yP=3?2W \.br\Pe rformed by RIRI guerra,\ .br\[address] [place] [address] \. br\www. [employer] Carl Wesley MD - Lab. Directo r [...] in 3:04 PM source source data data [place]# 0.5 0.0 - x10(3)/ No No Oct [...]
--- NOTE | 2017-05-27 12:42 | Emergency Room Report ---
History of Present Illness Time Seen by [id number] Presenting Problem in Triage Pt arrived:Walked Presenting Problem:PT REPORTS L ANKLE PAIN, STATES STEPPED OFF OF PORCH AND LANDED ANKLE Onset of symptoms date/time:05/27/17 or onset unknown for: Treatment Prior to Arrival: RN INTERVENTIONAL Provided by: Sepsis Risk Assessment: Temp: 98.1 B/P: 140/97 MAP: 111 Pulse: 105 Resp: 20 Recent fever? N Clinical Suspician of Infection? N Mental Status: 1 - Regular (Normal Baseline) Sepsis Risk:Possible Sepsis Risk Have you (or family members/close friends) recently traveled outside the [place]? N If Yes, where/when: Have you had exposure to infectious disease within the past month? N TB? Other? Specify: Source patient, RN notes reviewed Exam Limitations no limitations Comment Pt stepped off her porch this morning about 1 hour ago and her left ankle turned and she now comes to the ED with moderate to severe pain ...she has never injured her ankle like this before. Cardiac Chest Pain Chest pain indicative of cardiac No ALLERGIES Coded Allergies: No Known Allergies (10/18/15) Home Medications Reported Medications Alprazolam 0.5 MG PO TID #42 History Medical History General CAD? No Angina: No [place]: No Hypertension? No Hyperlipidemia? No CHF? No DVT? No PE? No COPD? No Asthma? No Anemia? No GERD? No Gastric ulcers? No GI Bleed? No Hernia? No Thyroid Problems? No Hypothyroidism? No CVA? No Seizures? No Diabetes? No Renal Insuffiency? No End Stage Renal Disease? No UTI? No Stones? No BPH? No GB Disease: No Nephritic Syndrome? No Asplenia? No Hepatitis? No Sickle Cell Disease? No Arthritis? No Migraines? No Cataracts? No Glaucoma? No MRSA? No HIV? No TB? No Anxiety? Yes Depression? No Cancer? No More? 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 Yes [employer] was queried for this patient? Yes Reference #: [id number] Reason not queried - [employer] system downtime, Manually Processing Results/Orders Current Medication Orders Sig/Max Start time Last Medication Dose Route Stop Time Status Admin Acetaminophen 500 MG ONCE ONE 05/27 1245 DC 05/27 PO 05/27 1246 1238 Acetaminophen 0 .STK-MED ONE 05/27 1238 DC PO Orders Procedure Date/time Status STABILIZE JOINT 05/27 1309 Active ANKLE-LT-3 VIEWS 05/27 1237 Active Departure Departure Time of Disposition 1303 Disposition DC Home or Self Care(routine) Clinical Impression Primary Impression: Left ankle sprain Qualifiers: Encounter type: initial encounter Involved ligament of ankle: unspecified ligament Qualified Code: S93.402A - Sprain of unspecified ligament of left ankle, initial encounter Condition STABLE Referrals BENJY BARRERA S (Family): 2 Days-Call Office Patient Instructions Ankle Sprain, DI for Ankle Sprain Additional Instructions Keep elevated and alternate Ice and heat and use whichever helps the most. If Ice helps the most do not leave ice on skin for more than 20 minutes per hour. Use medicine as directed and use ankle brace with no weight bearing for the next 2 to 3 days and if that does not improve, followup with PCP or Orthopedist on Sunday or Sunday for re-evaluation. If Radiologist sees anything on your xray we will give you a call. Also being placed in an ankle brace to help with support Discharge Counseling Counseled pt/family regarding diagnosis, test results, medications/RX, home care, follow up needs Prescriptions Current Visit Scripts HYDROCODONE 5MG/APAP 325MG (Hydrocodon-Acetaminophen 5-325) 1 TAB PO Q4HP PRN pain #18 TAB ED Critical Care Critical Care No If Critical Care minutes are documented, the time involved in the performance of seperately reportable procedures was not counted toward critical care time documented. I directly delivered medical care to this critically ill and/or injured patient. Timely evaluation and treatment was necessary to address the significant organ system(s) dysfunction present in this patient. at 6831
--- NOTE | 2017-05-27 12:42 | Emergency Room Report ---
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 N Clinical Suspician of Infection? N Mental Status: 1 - Regular (Normal Baseline) Sepsis Risk:Possible Sepsis Risk Have you (or family members/close friends) recently traveled outside the [place]? N If Yes, where/when: Have you had exposure to infectious disease within the past month? N TB? Other? Specify: Source patient, RN notes reviewed Exam Limitations no limitations Comment Pt stepped off her porch this morning about 1 hour ago and her left ankle turned and she now comes to the ED with moderate to severe pain ...she has never injured her ankle like this before. Cardiac Chest Pain Chest pain indicative of cardiac No ALLERGIES Coded Allergies: No Known Allergies (10/18/15) Home Medications Reported Medications Alprazolam 0.5 MG PO TID #42 History Medical History General CAD? No Angina: No [place]: No Hypertension? No Hyperlipidemia? No CHF? No DVT? No PE? No COPD? No Asthma? No Anemia? No GERD? No Gastric ulcers? No GI Bleed? No Hernia? No Thyroid Problems? No Hypothyroidism? No CVA? No Seizures? No Diabetes? No Renal Insuffiency? No End Stage Renal Disease? No UTI? No Stones? No BPH? No GB Disease: No Nephritic Syndrome? No Asplenia? No Hepatitis? No Sickle Cell Disease? No Arthritis? No Migraines? No Cataracts? No Glaucoma? No MRSA? No HIV? No TB? No Anxiety? Yes Depression? No Cancer? No More? 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 Yes [employer] was queried for this patient? Yes Reference #: [id number] Reason not queried - [employer] system downtime, Manually Processing Results/Orders Current Medication Orders Sig/Max Start time Last Medication Dose Route Stop Time Status Admin Acetaminophen 500 MG ONCE ONE 05/27 1245 DC 05/27 PO 05/27 1246 1238 Acetaminophen 0 .STK-MED ONE 05/27 1238 DC PO Orders Procedure Date/time Status STABILIZE JOINT 05/27 1309 Active ANKLE-LT-3 VIEWS 05/27 1237 Active Departure Departure Time of Disposition 1303 Disposition DC Home or Self Care(routine) Clinical Impression Primary Impression: Left ankle sprain Qualifiers: Encounter type: initial encounter Involved ligament of ankle: unspecified ligament Qualified Code: S93.402A - Sprain of unspecified ligament of left ankle, initial encounter Condition STABLE Referrals BENJY BARRERA S (Family): 2 Days-Call Office Patient Instructions Ankle Sprain, DI for Ankle Sprain Additional Instructions Keep elevated and alternate Ice and heat and use whichever helps the most. If Ice helps the most do not leave ice on skin for more than 20 minutes per hour. Use medicine as directed and use ankle brace with no weight bearing for the next 2 to 3 days and if that does not improve, followup with PCP or Orthopedist on Sunday or Sunday for re-evaluation. If Radiologist sees anything on your xray we will give you a call. Also being placed in an ankle brace to help with support Discharge Counseling Counseled pt/family regarding diagnosis, test results, medications/RX, home care, follow up needs Prescriptions Current Visit Scripts HYDROCODONE 5MG/APAP 325MG (Hydrocodon-Acetaminophen 5-325) 1 TAB PO Q4HP PRN pain #18 TAB ED Critical Care Critical Care No If Critical Care minutes are documented, the time involved in the performance of seperately reportable procedures was not counted toward critical care time documented. I directly delivered medical care to this critically ill and/or injured patient. Timely evaluation and treatment was necessary to address the significant organ system(s) dysfunction present in this patient. at 2846
[2017-05-27] MEDS ORDERED: HYDROCODONE-APA1 TA1 PO (13:07)
[2017-05-27 13:24] VITALS: BP 116/78
--- NOTE | 2017-05-27 14:55 | RADIOLOGY REPORT PS360 ---
ANKLE-LT-3 VIEWS Ordering Physician: Nataly Bello MD Patient Age: 36 years: Female HISTORY: FALL fell down steps With left ankle pain TECHNIQUE: 3 views left ankle fell down steps COMPARISON :None FINDINGS The left ankle intact with no fracture nor dislocation evident. The medial, lateral and posterior malleolus intact. No significant soft tissue swelling. The talar dome appears intact. Lateral view is obliqued rotated distorting the calcaneus unremarkable on this view submitted. IMPRESSION: Left ankle intact. No acute findings No fracture nor dislocation.
== END 2017-05-27 13:27 | disposition home or self-care (01) ==
LOC: ER 12:27
PROC: 2W3RX1Z Immobilization of Left Lower Leg using Splint (ICD-10-PCS; principal; 2017-05-27)
DX: S93.402A Sprain of unspecified ligament of left ankle, initial encounter (principal); F17.210 Nicotine dependence, cigarettes, uncomplicated; X50.1XXA Overexertion from prolonged static or awkward postures, initial encounter; Y92.018 Other place in single-family (private) house as the place of occurrence of the external cause